=== PATIENT | male | born 1950 | race Caucasian/White ===

== ENCOUNTER 2017-04-04 19:58 | Inpatient (IN) | payer OTHER ==
--- NOTE | 2017-04-04 21:56 | PDOC ---
History of Present Illness <MingoStephanie Maira - Last Filed: 04/04/17 22:39> - History of Present Illness Initial Comments: 04/04/17 22:59 66 y/o M with a PMHx of anemia, HTN, HLD, stents, cirrhosis presents to the ED with orthopnea and back discomfort for a few days, and hemoptysis today. Patient reports associated chills, but denies fever. He got outpatient labs and CXR today which all were normal. Because of the hemoptysis, the patients PCP ordered a chest CT which showed bilateral pneumonia. PCP requests the patient get admitted for IV antibiotics. Denies chest pain, headache. Denies nausea, vomiting, diarrhea. <aKte Cha - Last Filed: 04/04/17 23:39> - General Chief Complaint: Respiratory Stated Complaint: PCP ADMIT Past History - Past Medical History Anemia: Yes Cardiac Disorders: Yes (stents carotid arteries.pacemaker) HTN: Yes Hypercholesterolemia: Yes Liver Disease: Yes (cirrhosis on transplant list) - Surgical History Cardiac Surgery: Yes (3 STENTS, pacemaker) - Psycho/Social/Smoking Cessation Hx Anxiety: No Suicidal Ideation: No Smoking Status: Yes Smoking History: Former smoker Have you smoked in the past 12 months: No Number of Cigarettes Smoked Daily: 0 If you are a former smoker, when did you quit?: 10 years Information on smoking cessation initiated: No Hx Alcohol Use: Yes (Beer, occasionally) Drug/Substance Use Hx: No Substance Use Type: None Hx Substance Use Treatment: No <MingoStephaniederrick Rao - Last Filed: 04/04/17 22:39> <Kate Cha - Last Filed: 04/04/17 23:39> - Past Medical History Allergies/Adverse Reactions: Allergies Allergy/AdvReac Type Severity Reaction Status Date / Time No Known Allergies Allergy Verified 04/04/17 20:07 Home Medications: Ambulatory Orders Aspirin [ASA -] 81 mg PO Q2D 06/04/12 Calcium Acetate 667 mg PO BID 04/04/17 Carvedilol [Coreg -] 6.25 mg PO BID 04/04/17 Cholecalciferol (Vitamin D3) [Vitamin D3] 2,000 unit PO DAILY 04/04/17 Lovastatin 20 mg PO DAILY 04/04/17 Review of Systems - Review of Systems Comments:: 04/04/17 23:00 CONSTITUTIONAL: Absent: fever, chills, diaphoresis, generalized weakness, malaise, loss of appetite HEENT: Absent: rhinorrhea, nasal congestion, throat pain, throat swelling, difficulty swallowing, mouth swelling, ear pain, eye pain, visual changes CARDIOVASCULAR: Absent: chest pain, syncope, palpitations, irregular heart rate , lightheadedness, peripheral edema RESPIRATORY: (+) orthopnea, hemoptysis. Absent: cough, wheezing, stridor GASTROINTESTINAL: Absent: abdominal pain, abdominal distension, nausea, vomiting , diarrhea, constipation, melena, hematochezia GENITOURINARY: Absent: dysuria, frequency, urgency, hesitancy, hematuria, flank pain, genital pain MUSCULOSKELETAL: Absent: myalgia, arthralgia, joint swelling SKIN: Absent: rash, itching, pallor HEMATOLOGIC/IMMUNOLOGIC: Absent: easy bleeding, easy bruising, lymphadenopathy, frequent infections ENDOCRINE: Absent: unexplained weight gain, unexplained weight loss, heat intolerance, cold intolerance NEUROLOGIC: Absent: headache, focal weakness or paresthesias, dizziness, unsteady gait, seizure, mental status changes, bladder or bowel incontinence PSYCHIATRIC: Absent: anxiety, depression, suicidal or homicidal ideation, hallucinations. <Kate Cha - Last Filed: 04/04/17 23:39> *Physical Exam - Vital Signs Last Vital Signs Temp Pulse Resp BP Pulse Ox 97.5 F L 63 18 154/76 94 L 04/04/17 20:04 04/04/17 20:04 04/04/17 20:04 04/04/17 20:04 04/04/17 20:04 <Stephanie Aguila - Last Filed: 04/04/17 22:39> - Vital Signs Last Vital Signs Temp Pulse Resp BP Pulse Ox 97.5 F L 63 18 154/76 94 L 04/04/17 20:04 04/04/17 20:04 04/04/17 20:04 04/04/17 20:04 04/04/17 20:04 - Physical Exam Comments: 04/04/17 23:39 GENERAL: Well developed, well nourished. Awake and alert. No acute distress. HEENT: Normocephalic, atraumatic. PERRLA, EOMI. No conjunctival pallor. Sclera are non-icteric. Moist mucous membranes. Oropharynx is clear. NECK: Supple. Full ROM. No JVD. Carotid pulses 2+ and symmetric, without bruits. No thyromegaly. No lymphadenopathy. CARDIOVASCULAR: Regular rate and rhythm. No murmurs, rubs, or gallops. Distal pulses are 2+ and symmetric. PULMONARY: Defined crackles at lower bases, more right than left. ABDOMINAL: Soft. Non-tender. Non-distended. No rebound or guarding. No organomegaly. Normoactive bowel sounds. MUSCULOSKELETAL: Normal range of motion at all joints. No bony deformities or tenderness. No CVA tenderness. EXTREMITIES: No cyanosis. No clubbing. No edema. No calf tenderness. SKIN: Warm and dry. Normal capillary refill. No rashes. No jaundice. NEUROLOGICAL: Alert, awake, appropriate. Cranial nerves 2-12 intact. No deficits to light touch and temperature in face, upper extremities and lower extremities. No motor deficits in the in face, upper extremities and lower extremities. Normoreflexic in the upper and lower extremities. Normal speech. Toes are downgoing bilaterally. Gait is normal without ataxia. PSYCHIATRIC: Cooperative. Good eye contact. Appropriate mood and affect. <Kate Cha - Last Filed: 04/04/17 23:39> ED Treatment Course - Medications Given in the ED: ED Medications Discontinued Medications Generic Name Dose Route Start Last Admin Trade Name Freq PRN Reason Stop Dose Admin Ceftriaxone Sodium 1 gm/ 50 mls @ 100 mls/hr 04/04/17 22:23 04/04/17 22:59 Dextrose IVPB 04/04/17 22:52 100 mls/hr ONCE ONE Administration <Kate Cha - Last Filed: 04/04/17 23:39> Medical Decision Making - Medical Decision Making 04/04/17 21:56 66-year-old male sent for admission for bilateral infiltrates. Patient had a history of hemoptysis. -Dr Reynoso had CTA chest done and pt found to have infiltrates He had no fever but had c/o chills <Stephanie Aguila - Last Filed: 04/04/17 22:39> *DC/Admit/Observation/Transfer - Discharge Dispostion Admit: Yes <Stephanie Aguila - Last Filed: 04/04/17 22:39> - Attestations Scribe Attestion: 04/04/17 23:00 Documentation prepared by Kate Cha, acting as certified medical biller for Stephanie Aguila MD. <Kate Cha - Last Filed: 04/04/17 23:39> Diagnosis at time of Disposition: Hemoptysis Pneumonia Qualifiers: Pneumonia type: due to unspecified organism Laterality: bilateral Lung location : lower lobe of lung Qualified Code(s): J18.9 - Pneumonia, unspecified organism - Discharge Dispostion Condition at time of disposition: Stable - Referrals
[2017-04-04] MEDS ORDERED: AZITHROMYCIN IVPB 500 MG in DEXTROSE 5%-WATER - 250 ML IVPB ONE (22:23)
[2017-04-04] MEDS ORDERED: CEFTRIAXONE 1 GM in DEXTROSE 5%-WATER - 50 ML IVPB ONE (22:23)
[2017-04-04] MEDS ORDERED: AZITHROMYCIN IVPB 250 ML IVPB ONE (22:42)
[2017-04-04] MEDS ORDERED: CEFTRIAXONE 50 ML ONE (22:42)
[2017-04-04 23:31] LABS: INR 1.2 (0.82-1.09); PROTHROMBIN TIME (PATIENT) 13.2 SEC (9.98-11.88)
[2017-04-05] MEDS ORDERED: ALBUTEROL SO4 2.5/IPRATROPIUM 0.5 INH SOL 3 ML VIAL.NEB. NEB PRN (01:03)
[2017-04-05 03:16] VITALS: BMI 25.4
[2017-04-05 07:30] LABS: BASOPHIL 0.3 % (0-2.0); EOSINOPHIL 1.9 % (0-4.5); MCH 28.5 pg (25.7-33.7); MCHC 33.2 g/dl (32.0-35.9); MEAN CELL VOLUME 85.6 fl (80-96); NEUTROPHILS 55.2 % (42.8-82.8); PLATELET COUNT 77 K/MM3 (134-434); RDW 14.1 % (11.9-15.9); WHITE BLOOD COUNT 3.7 K/mm3 (4.0-10.0)
[2017-04-05 08:12] LABS: ALBUMIN 3.5 g/dl (3.4-5.0); ALK PHOS 62 U/L (45-117); ANION GAP 7 (8-16); BILIRUBIN,TOTAL 0.6 mg/dL (0.2-1.0); CALCIUM 8.8 mg/dL (8.5-10.1); CO2 30 mmol/L (21-32); CREATININE 0.6 mg/dL (0.7-1.3); GLUCOSE,RANDOM 116 mg/dL (74-106); SGOT/AST 20 U/L (15-37); SGPT/ALT 29 U/L (12-78)
--- NOTE | 2017-04-05 08:33 | PN ---
Progress Note (short form) - Note Progress Note: IMP: B/L PNA PPM CAD Hepatoma REC: Follow cultures Abx
--- NOTE | 2017-04-05 09:12 | CONS ---
DATE OF CONSULTATION: 04/05/2017 CONSULTATION REQUESTED BY: Catherine Joshi MD, for shortness of breath. The patient is a 66-year-old male, office patient of [facility] with coronary artery disease status post previous PCI, history of bilateral carotid endarterectomies, pacemaker, hepatoma treated at [facility], who came into the office yesterday with several days of dry cough, blood-tinged sputum, and chills and fever which occurred several days ago. I sent him to [facility] for a chest x-ray and blood work which were basically unremarkable. He then called me back saying he had continued hemoptysis, at which time I arranged for an outpatient CTA to rule out PE and pneumonia. Later in the evening I received a phone call from Dr. Granados reporting that he in fact had bilateral pneumonia, at which time I called the patient for admission. He has been cultured and has been given IV antibiotics. He is currently feeling better. He has had no more hemoptysis. He has been having some difficulty lying flat at night. PAST MEDICAL HISTORY: As outlined above and also includes hyperlipidemia, hypertension. He has chronic thrombocytopenia from chronic liver disease. MEDICATIONS: His home medications include carvedilol 6.25 b.i.d., vitamin D, calcium acetate, lovastatin 20, and aspirin 81 daily. FAMILY HISTORY: Noncontributory. SOCIAL HISTORY: He is a former smoker. PHYSICAL EXAMINATION: General: He appears well. Vital Signs: Temperature 97.7, blood pressure 136/72. O2 saturation was 93 on room air. Heart: S1, S2 regular. Chest: With dense rales at the left base. Abdomen: Soft. Extremities: No edema. EKG showed atrial pacing at 63 beats per minute. Cultures are currently pending. ASSESSMENT: 1. Bilateral pneumonia. 2. History of pacemaker. 3. History of coronary disease. 4. Hepatoma, treated at [facility]. PLAN: 1. Follow cultures. 2. IV antibiotics. 3. Pulmonary evaluation. Will follow. Thank you. RENETTA YEBOAH M.D. [id number]
[2017-04-05] MEDS ORDERED: PATIENT'S OWN MEDICATION (NON-FORMULARY) (Lovastatin [Lovastatin] 20 MG) PO SCH (10:00)
[2017-04-05] MEDS ORDERED: cefTRIAXone SODIUM 1 GM VIAL ONE (10:26)
[2017-04-05] MEDS ORDERED: DEXTROSE 5%-WATER - 50 ML IVPB ONE (10:27)
[2017-04-05] MEDS: AZITHROMYCIN IVPB 250 ML IVPB SCH (10:34)
[2017-04-05] MEDS: CEFTRIAXONE 1 GM in DEXTROSE 5%-WATER - 50 ML IVPB SCH (10:34)
[2017-04-05] MEDS: CALCIUM ACETATE 667 MG CAPSULE (FP) PO SCH ×2 (10:35→21:35)
[2017-04-05] MEDS: HEPARIN NA (PORCINE) 5,000 UNITS/ML 1ML VIAL SQ SCH ×2 (10:35→21:36)
[2017-04-05] MEDS: ASPIRIN 81 MG CHEWABLE TABLETS PO SCH (10:35)
[2017-04-05] MEDS: CARVEDILOL 6.25 MG TABLET (FP) PO SCH ×2 (10:35→21:35)
--- NOTE | 2017-04-05 14:50 | CON.PULM ---
Consult Consult Specialty:: PULMONARY Referred by:: PANCHO Reason for Consultation:: PNEUMONIA - History of Present Illness Chief Complaint: SOB/COUGH/HEMOPTYSIS History of Present Illness: 66 y/o M with a PMHx of anemia, HTN, HLD, stents, cirrhosis presents to the ED with orthopnea and back discomfort for a few days, and hemoptysis on day of admission. Patient reports associated chills, but denies fever. He got outpatient labs and CXR yesterday which all were normal. Because of the hemoptysis, the patients PCP ordered a chest CT which showed bilateral pneumonia. PCP requests the patient get admitted for IV antibiotics. Denies chest pain, headache. Denies nausea, vomiting, diarrhea. 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: Alzheimer's Cardio/Vascular: No: AFIB Pulmonary: No: Asthma, COPD, O2 Dependent Gastrointestinal: No: Ascites Hepatobiliary: No: Cirrhosis Renal/: No: Renal Failure Heme/Onc: No: Anemia Infectious Disease: No: AIDS Psych: No: Addictions - Alcohol/Substance Use Hx Alcohol Use: No - Smoking History Smoking history: Former smoker Have you smoked in the past 12 months: No Aproximately how many cigarettes per day: 0 If you are a former smoker, when did you quit?: 10 years Home Medications - Allergies Allergies/Adverse Reactions: Allergies Allergy/AdvReac Type Severity Reaction Status Date / Time No Known Allergies Allergy Verified 04/04/17 20:07 - Home Medications Home Medications: Ambulatory Orders Aspirin [ASA -] 81 mg PO Q2D 06/04/12 Calcium Acetate 667 mg PO BID 04/04/17 Carvedilol [Coreg -] 6.25 mg PO BID 04/04/17 Cholecalciferol (Vitamin D3) [Vitamin D3] 2,000 unit PO DAILY 04/04/17 Lovastatin 20 mg PO DAILY 04/04/17 Family Disease History - Family Disease History Family History: Unremarkable Review of Systems - Review of Systems Constitutional: reports: Fever Eyes: denies: Blurred Vision HENT: denies: Difficult Swallowing Neck: denies: Decreased ROM Cardiovascular: reports: Shortness of Breath. denies: Chest Pain Respiratory: reports: Cough, Hemoptysis, SOB on Exertion Gastrointestinal: denies: Abdominal Pain Genitourinary: denies: Burning Breasts: reports: No Symptoms Reported Physical Exam Vital Sings: Vital Signs Temperature 97.7 F 04/05/17 13:48 Pulse Rate 70 04/05/17 13:48 Respiratory Rate 20 04/05/17 13:48 Blood Pressure 116/75 04/05/17 13:48 O2 Sat by Pulse Oximetry (%) 93 L 04/05/17 03:10 Constitutional: Yes: Calm Eyes: Yes: EOM Intact HENT: Yes: Normocephalic Neck: Yes: Trachea Midline Cardiovascular: Yes: Regular Rate and Rhythm Respiratory: Yes: Rhonchi (bibasilar) Gastrointestinal: Yes: Soft Edema: No Labs: CBC, BMP 04/05/17 06:00 04/05/17 06:00 Imaging - Results Chest X-ray: Image Reviewed Cat Scan: Image Reviewed Problem List - Problems (1) Hemoptysis Code(s): R04.2 - HEMOPTYSIS (2) Pneumonia Code(s): J18.9 - PNEUMONIA, UNSPECIFIED ORGANISM Qualifiers: Pneumonia type: due to unspecified organism Laterality: bilateral Lung location: lower lobe of lung Qualified Code(s): J18.9 - Pneumonia, unspecified organism (3) ASHD (arteriosclerotic heart disease) Code(s): I25.10 - ATHSCL HEART DISEASE OF [place] CORONARY ARTERY W/O ANG PCTRS Assessment/Plan panculture/antibiotics/o2/bronchodilators as needed continue home meds will follow Marissa MACK MD
--- NOTE | 2017-04-05 18:17 | HP ---
Admitting History and Physical - Admission History of Present Illness: Pt is a 66 y/o male w/ PMH significant for HT, HLD, PPM, anemia and hepatoma. Pt saw his caddie today w/ complaints of orthopnea for a few days w/ dry nonproductive cough. Pt denies any fever/chills however pt developed hemoptysis and was sent for a ct scan chest and was found to have b/l oneumonia and sent to the ER. In the ER pt found to be afebrile w/ a normal WBC - Past Medical History Cardiovascular: Yes: HTN, Hyperlipdemia Heme/Onc: Yes: Anemia - Past Surgical History Past Surgical History: Yes: Permanent Pacemaker - Smoking History Smoking history: Former smoker Have you smoked in the past 12 months: No Aproximately how many cigarettes per day: 0 If you are a former smoker, when did you quit?: 10 years - Alcohol/Substance Use Hx Alcohol Use: No Home Medications - Allergies Allergies/Adverse Reactions: Allergies Allergy/AdvReac Type Severity Reaction Status Date / Time No Known Allergies Allergy Verified 04/04/17 20:07 - Home Medications Home Medications: Ambulatory Orders Aspirin [ASA -] 81 mg PO Q2D 06/04/12 Calcium Acetate 667 mg PO BID 04/04/17 Carvedilol [Coreg -] 6.25 mg PO BID 04/04/17 Cholecalciferol (Vitamin D3) [Vitamin D3] 2,000 unit PO DAILY 04/04/17 Lovastatin 20 mg PO DAILY 04/04/17 Family Disease History - Family Disease History Family History: Unremarkable Review of Systems - Review of Systems Constitutional: reports: Malaise Eyes: reports: No Symptoms HENT: reports: No Symptoms Neck: reports: No Symptoms Cardiovascular: reports: Shortness of Breath Respiratory: reports: Cough, Orthopnea, SOB Gastrointestinal: reports: No Symptoms Physical Examination Vital Signs: Vital Signs Temperature 97.7 F 04/05/17 13:48 Pulse Rate 70 04/05/17 13:48 Respiratory Rate 20 04/05/17 13:48 Blood Pressure 116/75 04/05/17 13:48 O2 Sat by Pulse Oximetry (%) 93 L 04/05/17 09:00 Constitutional: Yes: Calm Neck: Yes: WNL, Supple Cardiovascular: Yes: WNL, Regular Rate and Rhythm Respiratory: Yes: Rhonchi Gastrointestinal: Yes: WNL, Normal Bowel Sounds, Soft Musculoskeletal: Yes: WNL Extremities: Yes: WNL Edema: No Labs: CBC, BMP 04/05/17 06:00 04/05/17 06:00 Problem List - Problems (1) Pneumonia Assessment/Plan: B/L pneumonia Cont IV ceftriaxone/zithro Cont duoneb Pulmonary consult Code(s): J18.9 - PNEUMONIA, UNSPECIFIED ORGANISM Qualifiers: Pneumonia type: due to unspecified organism Laterality: bilateral Lung location: lower lobe of lung Qualified Code(s): J18.9 - Pneumonia, unspecified organism (2) HTN (hypertension) Assessment/Plan: Cont coreg/asa Code(s): I10 - ESSENTIAL (PRIMARY) HYPERTENSION (3) Hemoptysis Code(s): R04.2 - HEMOPTYSIS (4) Chronic respiratory failure Code(s): J96.10 - CHRONIC RESPIRATORY FAILURE, UNSP W HYPOXIA OR HYPERCAPNIA (5) ASHD (arteriosclerotic heart disease) Assessment/Plan: Cont asa/lipitor Code(s): I25.10 - ATHSCL HEART DISEASE OF [place] CORONARY ARTERY W/O ANG PCTRS (6) HLD (hyperlipidemia) Assessment/Plan: Cont lipitor Code(s): E78.5 - HYPERLIPIDEMIA, UNSPECIFIED
--- NOTE | 2017-04-05 18:42 | EKG ---
Test Reason : Blood Pressure : / mmHG Vent. Rate : 063 BPM Atrial Rate : 063 BPM P-R Int : 000 ms QRS Dur : 094 ms QT Int : 398 ms P-R-T Axes : -15 030 020 degrees QTc Int : 407 ms Atrial-paced rhythm with prolonged AV conduction ABNORMAL ECG WHEN COMPARED WITH ECG OF 05-JUN-2012 09:09, ELECTRONIC ATRIAL PACEMAKER HAS REPLACED SINUS RHYTHM Confirmed by JESSEE WARE MD ([id number]) on 04/05/2017 6:42:21 PM Referred By: Confirmed By:JESSEE WARE MD
--- NOTE | 2017-04-06 08:33 | PN ---
Progress Note (short form) - Note Progress Note: Afebrile with normal BP, not tachycardic and requiring O2 Comfortable with cough subsiding. No further blood tinged sputum. S1-2 Regular. Chest still w/ rales left base but improved He has no edema. Blood cultures remain negative. IMP: Bilobar PNA CAD PPM Hepatoma under treatment ([place]) REC: If cultures remain negative, can be discharged probably tomorrow with PO abx. Will need interval f/u CT as recommended by radiology.
[2017-04-06] MEDS ORDERED: cefTRIAXone SODIUM 1 GM VIAL ONE (09:15)
[2017-04-06] MEDS ORDERED: DEXTROSE 5%-WATER - 50 ML IVPB ONE (09:15)
[2017-04-06] MEDS: CALCIUM ACETATE 667 MG CAPSULE (FP) PO SCH ×2 (09:17→22:06)
[2017-04-06] MEDS: CARVEDILOL 6.25 MG TABLET (FP) PO SCH ×2 (09:17→22:06)
[2017-04-06] MEDS: CEFTRIAXONE 1 GM in DEXTROSE 5%-WATER - 50 ML IVPB SCH (09:18)
[2017-04-06] MEDS: HEPARIN NA (PORCINE) 5,000 UNITS/ML 1ML VIAL SQ SCH ×2 (09:18→22:06)
[2017-04-06] MEDS: AZITHROMYCIN IVPB 250 ML IVPB SCH (09:54)
--- NOTE | 2017-04-06 10:47 | PN ---
Progress Note (short form) - Note Progress Note: PULMONARY DAY#3 IV ANTIBIOTICS SUBJECTIVE IMPROVEMENT/MUCOUS WITH MINOR BLOOD STREAKING VSS/AFEBRILE ANICTERIC DIMINISHED BREATH SOUNDS S1S2 BS+ NO EDEMA LABS/MEDS/IMAGING/MICRO REVIEWED (1) Hemoptysis Code(s): R04.2 - HEMOPTYSIS (2) Pneumonia Code(s): J18.9 - PNEUMONIA, UNSPECIFIED ORGANISM Qualifiers: Pneumonia type: due to unspecified organism Laterality: bilateral Lung location: lower lobe of lung Qualified Code(s): J18.9 - Pneumonia, unspecified organism (3) ASHD (arteriosclerotic heart disease) Code(s): I25.10 - ATHSCL HEART DISEASE OF [place] CORONARY ARTERY W/O ANG PCTRS Assessment/Plan antibiotics/o2/bronchodilators/chest PT continue home meds should be ready for discharge in AM R FREDERICK BUTCHER Problem List - Problems (1) Hemoptysis Code(s): R04.2 - HEMOPTYSIS (2) Pneumonia Code(s): J18.9 - PNEUMONIA, UNSPECIFIED ORGANISM Qualifiers: Pneumonia type: due to unspecified organism Laterality: bilateral Lung location: lower lobe of lung Qualified Code(s): J18.9 - Pneumonia, unspecified organism (3) ASHD (arteriosclerotic heart disease) Code(s): I25.10 - ATHSCL HEART DISEASE OF [place] CORONARY ARTERY W/O ANG PCTRS
[2017-04-06] MEDS: ALBUTEROL SO4 2.5/IPRATROPIUM 0.5 INH SOL 3 ML VIAL.NEB. NEB SCH ×3 (11:31→23:20)
--- NOTE | 2017-04-06 23:46 | PN ---
Progress Note, Physician History of Present Illness: Pt still w/ cough but less SOB - Current Medication List Current Medications: Active Medications Albuterol/Ipratropium (Duoneb -) 1 amp NEB QIDR [facility] Last Admin: 04/06/17 17:30 Dose: 1 amp Aspirin (Asa -) 81 mg PO Q2D [facility] Last Admin: 04/05/17 10:35 Dose: 81 mg Calcium Acetate (Phoslo -) 667 mg PO BID [facility] Last Admin: 04/06/17 22:06 Dose: 667 mg Carvedilol (Coreg -) 6.25 mg PO BID [facility] Last Admin: 04/06/17 22:06 Dose: 6.25 mg Heparin Sodium (Porcine) (Heparin -) 5,000 unit SQ BID [facility] Last Admin: 04/06/17 22:06 Dose: 5,000 unit Azithromycin (Zithromax 500mg Ivpb (Pre-Docked)) 250 mls @ 250 mls/hr IVPB DAILY [facility] Last Admin: 04/06/17 09:54 Dose: 250 mls/hr Ceftriaxone Sodium 1 gm/ (Dextrose) 50 mls @ 100 mls/hr IVPB DAILY [facility] Last Admin: 04/06/17 09:18 Dose: 100 mls/hr Non-Formulary Medication (Lovastatin [Lovastatin]) 20 mg PO DAILY [facility] - Objective Vital Signs: Vital Signs Temperature 98.0 F 04/06/17 18:26 Pulse Rate 66 04/06/17 18:26 Respiratory Rate 18 04/06/17 18:26 Blood Pressure 132/71 04/06/17 18:26 O2 Sat by Pulse Oximetry (%) 94 L 04/06/17 09:00 Constitutional: Yes: Calm HENT: Yes: WNL Neck: Yes: WNL, Supple Cardiovascular: Yes: WNL, Regular Rate and Rhythm Respiratory: Yes: Diminished Gastrointestinal: Yes: WNL, Normal Bowel Sounds, Soft Musculoskeletal: Yes: WNL Extremities: Yes: WNL Edema: No Labs: CBC, BMP 04/05/17 06:00 04/05/17 06:00 INR, PTT INR 1.20 (0.82-1.09) H 04/04/17 22:45 Problem List - Problems (1) Pneumonia Assessment/Plan: B/L pneumonia Cont IV ceftriaxone/zithro Cont duoneb Some improvement Probable dc planning for am Code(s): Rhiannon18.9 - PNEUMONIA, UNSPECIFIED ORGANISM Qualifiers: Pneumonia type: due to unspecified organism Laterality: bilateral Lung location: lower lobe of lung Qualified Code(s): J18.9 - Pneumonia, unspecified organism (2) Chronic respiratory failure Code(s): J96.10 - CHRONIC RESPIRATORY FAILURE, UNSP W HYPOXIA OR HYPERCAPNIA (3) ASHD (arteriosclerotic heart disease) Assessment/Plan: Cont asa/lipitor Code(s): I25.10 - ATHSCL HEART DISEASE OF [place] CORONARY ARTERY W/O ANG PCTRS (4) HLD (hyperlipidemia) Assessment/Plan: Cont lipitor Code(s): E78.5 - HYPERLIPIDEMIA, UNSPECIFIED (5) HTN (hypertension) Assessment/Plan: Cont coreg/asa Code(s): I10 - ESSENTIAL (PRIMARY) HYPERTENSION (6) Hemoptysis Assessment/Plan: Resolved Code(s): R04.2 - HEMOPTYSIS (7) Hepatoma Assessment/Plan: As per [facility]co at [facility] Code(s): C22.0 - LIVER CELL CARCINOMA
[2017-04-07] MEDS: ALBUTEROL SO4 2.5/IPRATROPIUM 0.5 INH SOL 3 ML VIAL.NEB. NEB SCH ×2 (07:14→11:44)
[2017-04-07 07:18] LABS: BASOPHIL 0.4 % (0-2.0); EOSINOPHIL 2.8 % (0-4.5); MCH 28.5 pg (25.7-33.7); MCHC 33.2 g/dl (32.0-35.9); MEAN CELL VOLUME 85.8 fl (80-96); NEUTROPHILS 59.2 % (42.8-82.8); PLATELET COUNT 79 K/MM3 (134-434); RDW 14.4 % (11.9-15.9); WHITE BLOOD COUNT 3.7 K/mm3 (4.0-10.0)
--- NOTE | 2017-04-07 08:45 | PN ---
Progress Note (short form) - Note Progress Note: Afebrile, cultures remain negative feels well, blood tinged sputum resolved BP: 150/80 CV: S1, 2. RRR. No murmurs Chest: no wheezing. Rales left base improved. Abd: soft, NT Ext: no edema Microbiology 04/04/17 22:45 Blood - Peripheral Venous Blood Culture - Preliminary NO GROWTH OBTAINED AFTER 48 HOURS, INCUBATION TO CONTINUE FOR 3 DAYS. 04/04/17 22:45 Blood - Peripheral Venous Blood Culture - Preliminary NO GROWTH OBTAINED AFTER 48 HOURS, INCUBATION TO CONTINUE FOR 3 DAYS. Laboratory Tests 04/05/17 04/06/17 04/07/17 06:00 10:45 06:00 WBC 3.7 L Hct 38.8 Plt Count 79 L Potassium 4.1 Creatinine 0.6 L C-Reactive Protein 1.2 H IMP: B/l PNA Hepatoma CAD PPM REC: Remains stable with improved cough, not requiring O2. Cultures negative x 72 hours. Can be discharged on PO abx with close outpatient follow up.
[2017-04-07] MEDS ORDERED: DEXTROSE 5%-WATER - 50 ML IVPB ONE (09:08)
[2017-04-07] MEDS ORDERED: cefTRIAXone SODIUM 1 GM VIAL ONE (09:08)
[2017-04-07] MEDS: CEFTRIAXONE 1 GM in DEXTROSE 5%-WATER - 50 ML IVPB SCH (09:15)
[2017-04-07] MEDS: HEPARIN NA (PORCINE) 5,000 UNITS/ML 1ML VIAL SQ SCH (09:15)
[2017-04-07] MEDS: CALCIUM ACETATE 667 MG CAPSULE (FP) PO SCH (09:16)
[2017-04-07] MEDS: CARVEDILOL 6.25 MG TABLET (FP) PO SCH (09:16)
[2017-04-07] MEDS: ASPIRIN 81 MG CHEWABLE TABLETS PO SCH (09:16)
[2017-04-07] MEDS: AZITHROMYCIN IVPB 250 ML IVPB SCH (09:54)
[2017-04-07 14:07] VITALS: BP 117/74; PULSE 64; TEMP 97.6
== END 2017-04-07 16:34 | disposition home or self-care (01) | DRG 194 ==
LOC: JER 19:58 → JERBED 22:29 → UNDOADMIN 23:02 → JERBED 23:02 → J7W 04-05 00:51
PROVIDERS: ADMIT Internal Medicine; ATTEND Internal Medicine
DX: J18.9 Pneumonia, unspecified organism (principal); C22.0 Liver cell carcinoma; I10 Essential (primary) hypertension; E78.5 Hyperlipidemia, unspecified; K74.60 Unspecified cirrhosis of liver; Z95.5 Presence of coronary angioplasty implant and graft; I25.10 Atherosclerotic heart disease of native coronary artery without angina pectoris; Z95.0 Presence of cardiac pacemaker; Z87.891 Personal history of nicotine dependence
CPT/HCPCS: 36415; 71020-TC; 71275-TC; 80048; 80053; 80076; 83880; 85025; 85610; 86140; 87040; 93005; 93010; 94640; 99282-25; C1887; J1644

== ENCOUNTER 2019-08-02 13:52 | Inpatient (IN) | payer OTHER ==
--- NOTE | 2019-08-02 15:36 | PDOC ---
History of Present Illness - General Chief Complaint: Edema Stated Complaint: RT. LEG EDEMA - History of Present Illness Initial Comments: 68M PMH DM, HTN, CHF s/p AICD/PPM on home O2 (2.5L), AF w/ watchmen, Liver transplant (2016 on tacrolimus), sent in by PCP Dr. Harshil Garcia due to b /l LE pitting edema w/ R > L and generalized fatigue. Not normally edematous. Sx appeared days ago. Fatigue x 1 week. Has 6 mo h/o sob and orthopnea, has not worsened. Denies f/c/cp/n/v/d. NKDA Former smoker Past History - Past Medical History Allergies/Adverse Reactions: Allergies Allergy/AdvReac Type Severity Reaction Status Date / Time No Known Allergies Allergy Verified 08/02/19 14:01 Home Medications: Ambulatory Orders Aspirin [ASA -] 81 mg PO DAILY 06/04/12 Cholecalciferol (Vitamin D3) [Vitamin D3] 2,000 unit PO DAILY 04/04/17 Atorvastatin Ca [Lipitor] 20 mg PO HS 08/02/19 Carvedilol 12.5 mg PO BID 08/02/19 Cyanocobalamin [Vitamin B12 -] 1,000 mcg PO DAILY 08/02/19 Furosemide 40 mg PO DAILY 08/02/19 Insulin (Levemir) [Levemir Vial] 8 unit SQ HS 08/02/19 Insulin Lispro [Humalog] 5 unit SQ AC 08/02/19 Magnesium Oxide [Magnesium] 0.5 tab PO QID 08/02/19 Multivit-Min/Ferrous Fumarate [Uhjivlgx-M-U with Minerals] 1 each PO DAILY 08/02 Tacrolimus Anhydrous [Prograf] 1 mg PO BID 08/02/19 Ubidecarenone [Co Q-10] 1 tab DAILY 08/02/19 Vitamin E 100 unit PO DAILY 08/02/19 traZODone HCL [Trazodone HCl] 50 mg PO HS 08/02/19 Anemia: Yes Cardiac Disorders: Yes (stents carotid arteries.pacemaker) COPD: No HTN: Yes Hypercholesterolemia: Yes Liver Disease: Yes (cirrhosis on transplant list) - Surgical History Cardiac Surgery: Yes (3 STENTS, pacemaker) - Psycho Social/Smoking Cessation Hx Smoking Status: Yes Smoking History: Former smoker Have you smoked in the past 12 months: No Number of Cigarettes Smoked Daily: 0 If you are a former smoker, when did you quit?: 10 years Information on smoking cessation initiated: No Hx Alcohol Use: No Drug/Substance Use Hx: No Substance Use Type: None Hx Substance Use Treatment: No Review of Systems - Review of Systems Able to Perform ROS?: Yes Comments:: CONSTITUTIONAL: Denies F / C HEENT: Denies headache, lightheadedness, dizziness RESP: endorses chronic CRAMER, orthopnea CARD: Denies chest pain, palpitations GI: Denies N / V / D, abdominal pain, bloody stool, inability to tolerate PO : Denies dysuria SKIN: Denies rashes NEURO: Denies numbness, tingling, weakness MSK: Denies back pain *Physical Exam - Vital Signs Last Vital Signs Temp Pulse Resp BP Pulse Ox 98.7 F 82 18 128/74 90 L 08/02/19 13:57 08/02/19 13:57 08/02/19 13:57 08/02/19 13:57 08/02/19 13:57 - Physical Exam GEN: NAD, comfortable. AAOx3 HEENT: NC/AT, EOMI, PERRLA. No facial asymmetry. Normal voice. Supple neck w/ FROM. CV: S1/S2, RRR, no m/r/g LUNG: SaO2 mid 80s on RA. CTAB no crackles appreciated GI: soft, ndnt, +BS, no guarding, no rebound. No masses. EXTREMITIES: +distal pulses. + pitting LE edema b/l; R>L. +warmth and erythema of the RLE. No calf TTP. No obvious deformities of all extremities. SKIN: warm, dry, normal turgor PSYCH: normal mood and affect NEURO: Moving all extremities well. Ambulating w/ normal gait ED Treatment Course - LABORATORY CBC & Chemistry Diagram: 08/03/19 06:35 08/04/19 06:15 Medical Decision Making - Medical Decision Making 08/02/19 15:28 68M DM, HTN, CHF s/p AICD/PPM, Liver transplant 2017 on tacrolimus sent in by PCP Dr. Harshil Garcia for evaluation of LE pitting edema, generalized fatigue. Has chronic sob/orthopnea. +redness and warmth of the RLE; b/l pitting edema R > L. Received 40mg Lasix at PCPs. DDx - CHF exacerbation; DVT; cellulitis - CBC, CMP, BNP, Cardiac - CXR - EKG - RLE Duplex - empiric vanc 08/02/19 17:02 d/w Dr. Harshil Garcia - he is concerned about PE and requesting CTA. h/o AF w/ watchman device 2/2 GIB on AC. requesting fobt and to possibly start LVX 08/02/19 19:39 f/u imaging results FOBT 08/02/19 20:03 No DVT on Doppler 08/02/19 20:09 d/w Dr. Aj - will see in AM ADMITTED TELE under Dr. Joshi Discharge - Discharge Information Problems reviewed: Yes Clinical Impression/Diagnosis: CHF (congestive heart failure) Qualifiers: Heart failure type: unspecified Heart failure chronicity: unspecified Qualified Code(s): I50.9 - Heart failure, unspecified - Follow up/Referral - Patient Discharge Instructions - Post Discharge Activity
[2019-08-02 16:16] LABS: BASO % 0.4 % (0-2.0); EOS % 1.9 % (0-4.5); HEMATOCRIT 49.7 % (35.4-49); HEMOGLOBIN 15.9 GM/dL (11.7-16.9); LYMPH % 17.8 % (8-40); MCH 30.1 pg (25.7-33.7); MEAN CELL VOLUME 94.3 fl (80-96); MEAN PLT VOLUME 8.4 fl (7.5-11.1); NEUT % 67.9 % (42.8-82.8); PLATELET COUNT 164 K/MM3 (134-434); RBC 5.27 M/mm3 (4.00-5.60); RDW 17.5 % (11.9-15.9); WHITE BLOOD COUNT 7.4 K/mm3 (4.0-10.0)
[2019-08-02] MEDS ORDERED: VANCOMYCIN 1 GM in D5W (PRE-DOCKED) 1,000 MG/250 ML IVPB ONE (16:21)
[2019-08-02] MEDS ORDERED: VANCOMYCIN 1 GRAM (PRE-DOCKED) 1,000 MG/250 ML BAG IVPB ONE (16:39)
[2019-08-02 16:52] LABS: ALBUMIN 4.4 g/dl (3.4-5.0); BILIRUBIN,TOTAL 1.6 mg/dL (0.2-1); BLOOD UREA NITROGEN 26.6 mg/dL (7-18); CALCIUM 9.9 mg/dL (8.5-10.1); CREATININE 1.2 mg/dL (0.55-1.3); N-TERMINAL BNP 886.8 pg/ml (5-125); POTASSIUM 5.1 mmol/L (3.5-5.1); TOT PROT 7.9 g/dl (6.4-8.2)
[2019-08-03] MEDS ORDERED: PATIENT'S OWN MEDICATION (NON-FORMULARY) (Insulin Lispro [Humalog] 5 UNIT) SQ SCH (00:15)
[2019-08-03 01:55] VITALS: BMI 26.8
[2019-08-03] MEDS ORDERED: ceFAZolin SODIUM 1 GM VIAL ONE ×3 (02:14→17:09)
[2019-08-03] MEDS ORDERED: DEXTROSE 5%-WATER - 50 ML IVPB ONE ×3 (02:14→17:09)
[2019-08-03] MEDS: CEFAZOLIN 1 GM in DEXTROSE 5%-WATER - 50 ML IVPB SCH ×4 (02:19→17:21)
[2019-08-03] MEDS: traZODone HCL 50 MG TABLET (FP) PO SCH ×2 (04:39→21:27)
[2019-08-03] MEDS: INSULIN SLIDING SCALE (NOVOLOG) 1 VIAL SQ SCH ×3 (06:17→21:25)
[2019-08-03 07:04] LABS: BASO % 0.4 % (0-2.0); EOS % 1.9 % (0-4.5); HEMATOCRIT 44.1 % (35.4-49); HEMOGLOBIN 14.3 GM/dL (11.7-16.9); MCH 30.2 pg (25.7-33.7); MCHC 32.5 g/dl (32.0-35.9); MEAN CELL VOLUME 92.9 fl (80-96); MEAN PLT VOLUME 8.1 fl (7.5-11.1); MONO % 13.6 % (3.8-10.2); NEUT % 69.1 % (42.8-82.8); PLATELET COUNT 129 K/MM3 (134-434); RBC 4.74 M/mm3 (4.00-5.60); WHITE BLOOD COUNT 5.6 K/mm3 (4.0-10.0)
[2019-08-03 07:49] LABS: ALBUMIN 3.7 g/dl (3.4-5.0); BILIRUBIN,TOTAL 1.4 mg/dL (0.2-1); BLOOD UREA NITROGEN 21.8 mg/dL (7-18); CALCIUM 8.6 mg/dL (8.5-10.1); CREATININE 1.1 mg/dL (0.55-1.3); POTASSIUM 4.3 mmol/L (3.5-5.1); TOT PROT 6.7 g/dl (6.4-8.2)
[2019-08-03] MEDS ORDERED: PT OWN MED DRAWER 7, Y5N ONE ×3 (08:03→20:52)
--- NOTE | 2019-08-03 08:03 | CON.CARD ---
Consult Consult Specialty:: cardiology Reason for Consultation:: shortness of breath - History of Present Illness Chief Complaint: Pt A&Ox3; no chesta pain or dyspnea; c/o bilateral LE swelling , though improving History of Present Illness: The patient is a 68 year old white male, with a significant past medical history of anemia, HTN, HLD, diastolic CHF s/p DDDR PPM, AF s/p Watchman (?no longer on anticoagulation), CAD-->coronary stents, COPD, on home O2, DM, cirrhosis, s/p liver transplant ([facility]2016; on Tarcrolimus), who presents to the emergency department with, worsening bilateral lower extremity edema, dyspnea, fatigue, and orthopnea x one week.. As per patient, he ate canned soup just prior to the onset of his symptoms; denies nausea, vomiting, diarrhea, constipation, dysuria, frequency, urgency, or hematuria. He notes visiting his PCP, Dr. Garcia who gave him IV Lasix and advised him to report to the ED. Allergies: NKDA Not normally edematous. Sx appeared days ago. Has 6 mo h/o sob and orthopnea, has not worsened. Former smoker (quit 2006) - History Source History Provided By: Patient, Medical Record Limitations to Obtaining History: No Limitations - Past Medical History Cardio/Vascular: Yes: Aortic Stenosis (moderate on most recent ECHO), CAD, CHF, HTN, Hyperlipdemia Pulmonary: Yes: COPD. No: Asthma Hepatobiliary: Yes: Cirrhosis, Other (s/p liver transplant) Renal/: No: Renal Inusuff Heme/Onc: No: Anemia - Past Surgical History Past Surgical History: Yes: Liver Transplant, Permanent Pacemaker - Alcohol/Substance Use Hx Alcohol Use: No - Smoking History Smoking history: Former smoker Have you smoked in the past 12 months: No Aproximately how many cigarettes per day: 0 If you are a former smoker, when did you quit?: 12 YEARS AGO Home Medications - Allergies Allergies/Adverse Reactions: Allergies Allergy/AdvReac Type Severity Reaction Status Date / Time No Known Allergies Allergy Verified 08/02/19 14:01 - Home Medications Home Medications: Ambulatory Orders Aspirin [ASA -] 81 mg PO DAILY 06/04/12 Cholecalciferol (Vitamin D3) [Vitamin D3] 2,000 unit PO DAILY 04/04/17 Atorvastatin Ca [Lipitor] 20 mg PO HS 08/02/19 Carvedilol 12.5 mg PO BID 08/02/19 Cyanocobalamin [Vitamin B12 -] 1,000 mcg PO DAILY 08/02/19 Furosemide 40 mg PO DAILY 08/02/19 Insulin (Levemir) [Levemir Vial] 8 unit SQ HS 08/02/19 Insulin Lispro [Humalog] 5 unit SQ AC 08/02/19 Magnesium Oxide [Magnesium] 0.5 tab PO QID 08/02/19 Multivit-Min/Ferrous Fumarate [Elawvazz-M-X with Minerals] 1 each PO DAILY 08/02 Tacrolimus Anhydrous [Prograf] 1 mg PO BID 08/02/19 Ubidecarenone [Co Q-10] 1 tab DAILY 08/02/19 Vitamin E 100 unit PO DAILY 08/02/19 traZODone HCL [Trazodone HCl] 50 mg PO HS 08/02/19 Family Medical History Family History: Denies Review of Systems - Review of Systems Constitutional: reports: Weakness - Risk Factors Known Risk Factors: Yes: Age, Gender, Hypertension, Physical Inactivity, Other ( liver cirrhosis-->transplant; COPD;) Vital Signs: Vital Signs Temperature 97.8 F 08/03/19 06:00 Pulse Rate 59 L 08/03/19 06:00 Respiratory Rate 20 08/03/19 06:00 Blood Pressure 114/66 08/03/19 06:00 O2 Sat by Pulse Oximetry (%) 95 08/03/19 01:30 - Other Data Labs, Other Data: CBC, BMP 08/03/19 06:35 08/03/19 06:35 Troponin, BNP 08/02/19 08/02/19 08/03/19 15:30 15:30 02:00 Troponin I < 0.02 < 0.02 B-Natriuretic Peptide 886.8 H Troponin, BNP 08/02/19 08/02/19 08/03/19 15:30 15:30 02:00 Troponin I < 0.02 < 0.02 B-Natriuretic Peptide 886.8 H Problem List - Problems (1) Liver cirrhosis Code(s): K74.60 - UNSPECIFIED CIRRHOSIS OF LIVER (2) S/P liver transplant Code(s): Z94.4 - LIVER TRANSPLANT STATUS (3) H/O heart artery stent Assessment/Plan: ? most recently 2006 F/u prior cardiac workup Code(s): Z95.5 - PRESENCE OF CORONARY ANGIOPLASTY IMPLANT AND GRAFT (4) ASHD (arteriosclerotic heart disease) Code(s): I25.10 - ATHSCL HEART DISEASE OF [place] CORONARY ARTERY W/O ANG PCTRS (5) HLD (hyperlipidemia) Assessment/Plan: On atorvastatin LDL well-controlled Code(s): E78.5 - HYPERLIPIDEMIA, UNSPECIFIED (6) HTN (hypertension) Assessment/Plan: On carvedilol On furosemide (caution with ; f/u ECHO. Start lisinopril (HTN; CHF; DM). Code(s): I10 - ESSENTIAL (PRIMARY) HYPERTENSION (7) Aortic stenosis Assessment/Plan: moderate on 2011 ECHO; f/u ECHO in am. Code(s): I35.0 - NONRHEUMATIC AORTIC (VALVE) STENOSIS (8) Pacemaker Code(s): Z95.0 - PRESENCE OF CARDIAC PACEMAKER (9) CHF (congestive heart failure) Assessment/Plan: elevated BNP CXR: pleural effusion f/u ECHO F/u BUn/Cr, eelectrolytes, daily weight, Is and Os. Code(s): I50.9 - HEART FAILURE, UNSPECIFIED Qualifiers: Heart failure type: unspecified Heart failure chronicity: unspecified Qualified Code(s): I50.9 - Heart failure, unspecified (10) Diabetes Code(s): E11.9 - TYPE 2 DIABETES MELLITUS WITHOUT COMPLICATIONS (11) COPD (chronic obstructive pulmonary disease) Code(s): J44.9 - CHRONIC OBSTRUCTIVE PULMONARY DISEASE, UNSPECIFIED (12) Acute on chronic diastolic CHF (congestive heart failure) Assessment/Plan: +JVP CXR: right pleural effusion BNP >800 On carvedilol, lisinopril, and furosemide. Daily weight; Is and Os; BUN/Cr; electrolytes. ECHO for LVEF, valve status, chamber sizes. For CTA chest. Code(s): I50.33 - ACUTE ON CHRONIC DIASTOLIC (CONGESTIVE) HEART FAILURE
[2019-08-03] MEDS: ASPIRIN 81 MG CHEWABLE TABLETS PO SCH (09:36)
[2019-08-03] MEDS: FUROSEMIDE 40 MG/4 ML INJECTABLE VIAL IVPUSH SCH (09:36)
[2019-08-03] MEDS: HEPARIN NA (PORCINE) 5,000 UNITS/ML 1ML VIAL SQ SCH ×2 (09:36→21:27)
[2019-08-03] MEDS: CARVEDILOL 12.5 MG TABLET (FP) PO SCH ×2 (09:36→21:27)
[2019-08-03] MEDS: LISINOPRIL 5 MG TABLET (FP) PO SCH (09:38)
[2019-08-03] MEDS: TACROLIMUS ANHYDROUS 1 MG CAPSULE PO SCH ×2 (10:30→21:27)
--- NOTE | 2019-08-03 13:06 | ECHO ---
Name: MICHAEL THOMPSON Exam:Adult Echocardiogram Study Date: 08/03/2019 11:30 AM Age: 68 yrs Height: 72 in Weight: 196 lb BSA: 2.1 m2 MMode/2D Measurements & Calculations IVSd: 1.0 cm Ao root diam: 2.3 cm LVIDd: 4.4 cm LA dimension: 3.8 cm LVIDs: 3.3 cm LVPWd: 1.1 cm LVPWs: 1.7 cm EDV(Teich): 86.6 ml ESV(Teich): 43.6 ml LVOT diam: 2.1 cm LAV (MOD-bp): 54.0 ml RV S John: 12.8 cm/sec Doppler Measurements & Calculations MV E max john: 67.1 cm/sec Ao V2 max: 299.0 cm/sec MV A max john: 40.0 cm/sec Ao max P.9 mmHg MV E/A: 1.7 Ao V2 mean: 203.3 cm/sec MV dec time: 0.14 sec Ao mean P.4 mmHg Ao V2 VTI: 69.8 cm LUC(I,D): 1.1 cm2 AI P1/2t: 712.0 msec LUC(V,D): 1.1 cm2 AI max john: 343.7 cm/sec LV V1 max P.6 mmHg AI max P.3 mmHg LV V1 mean P.2 mmHg AI dec slope: 141.4 cm/sec2 LV V1 max: 94.8 cm/sec LV V1 mean: 70.3 cm/sec LV V1 VTI: 21.8 cm MR max john: 381.6 cm/sec SV(LVOT): 78.9 ml MR max P.2 mmHg TR max john: 155.5 cm/sec PA V2 max: 78.0 cm/sec TR max P.7 mmHg PA max P.5 mmHg Med Peak E' John: 3.8 cm/sec Med E/e': 17.7 Lat Peak E' John: 10.3 cm/sec Lat E/e': 6.5 Left Ventricle Left ventricular systolic function is normal. Ejection Fraction = 55-60%. Right Ventricle There is a pacemaker lead in the right ventricle. The right ventricle is grossly normal size. The rig ht ventricular systolic function is grossly normal. Atria The left atrium is borderline dilated. Right atrial size is normal. Mitral Valve The mitral valve is normal in structure and function. There is no mitral valve stenosis. There is mil d mitral regurgitation. Tricuspid Valve The tricuspid valve is normal in structure and function. There is mild tricuspid regurgitation. Right ventricular systolic pressure is normal. Aortic Valve Moderate valvular aortic stenosis. Mild aortic regurgitation. Pulmonic Valve The pulmonic valve is not well seen, but is grossly normal. There is no pulmonic valvular stenosis. T race pulmonic valvular regurgitation. Great Vessels Borderline aortic root dilatation. Pericardium/Pleura There is no pericardial effusion. Interpretation Summary Left ventricular systolic function is normal. Ejection Fraction = 55-60%. There is a pacemaker lead in the right ventricle. The left atrium is borderline dilated. There is mild mitral regurgitation. There is mild tricuspid regurgitation. Moderate valvular aortic stenosis. Mild aortic regurgitation. There is no pericardial effusion. MD Holcomb *Jennifer 08/03/2019 01:05 PM
[2019-08-03] MEDS ORDERED: INSULIN (NOVOLOG) ASPART 100 UNITS/ML 10ML VIAL ONE (13:27)
--- NOTE | 2019-08-03 14:08 | EKG ---
Test Reason : Blood Pressure : / mmHG Vent. Rate : 063 BPM Atrial Rate : 063 BPM P-R Int : 208 ms QRS Dur : 078 ms QT Int : 416 ms P-R-T Axes : 000 001 006 degrees QTc Int : 425 ms POOR DATA QUALITY, INTERPRETATION MAY BE ADVERSELY AFFECTED Atrial-paced rhythm ABNORMAL ECG WHEN COMPARED WITH ECG OF 04-APR-2017 22:38, NO SIGNIFICANT CHANGE WAS FOUND Confirmed by RENETTA YEBOAH MD ([id number]) on 08/03/2019 2:07:54 PM Referred By: Confirmed By:RENETTA YEBOAH MD
--- NOTE | 2019-08-03 14:52 | HP ---
Admitting History and Physical - Admission History of Present Illness: The patient is a year old male, with a significant past medical history of anemia, HTN, HLD, CAD(s/p cardiac stents), pacemaker, CHF and cirrhosis, who presented to the emergency department with worsening bilateral lower extremity edema, dyspnea, and orthopnea. Pt was given IV lasix by his PMD and sent to the ER. - Past Medical History Cardiovascular: Yes: CAD, CHF, HTN, Hyperlipdemia Gastrointestinal: Yes: Other (Cirrhosis) Heme/Onc: Yes: Anemia - Past Surgical History Past Surgical History: Yes: Permanent Pacemaker - Smoking History Smoking history: Former smoker Have you smoked in the past 12 months: No Aproximately how many cigarettes per day: 0 If you are a former smoker, when did you quit?: 12 YEARS AGO - Alcohol/Substance Use Hx Alcohol Use: No Home Medications - Allergies Allergies/Adverse Reactions: Allergies Allergy/AdvReac Type Severity Reaction Status Date / Time No Known Allergies Allergy Verified 08/02/19 14:01 - Home Medications Home Medications: Ambulatory Orders Aspirin [ASA -] 81 mg PO DAILY 06/04/12 Cholecalciferol (Vitamin D3) [Vitamin D3] 2,000 unit PO DAILY 04/04/17 Atorvastatin Ca [Lipitor] 20 mg PO HS 08/02/19 Carvedilol 12.5 mg PO BID 08/02/19 Cyanocobalamin [Vitamin B12 -] 1,000 mcg PO DAILY 08/02/19 Furosemide 40 mg PO DAILY 08/02/19 Insulin (Levemir) [Levemir Vial] 8 unit SQ HS 08/02/19 Insulin Lispro [Humalog] 5 unit SQ AC 08/02/19 Magnesium Oxide [Magnesium] 0.5 tab PO QID 08/02/19 Multivit-Min/Ferrous Fumarate [Gdjqnxwo-I-F with Minerals] 1 each PO DAILY 08/02 Tacrolimus Anhydrous [Prograf] 1 mg PO BID 08/02/19 Ubidecarenone [Co Q-10] 1 tab DAILY 08/02/19 Vitamin E 100 unit PO DAILY 08/02/19 traZODone HCL [Trazodone HCl] 50 mg PO HS 08/02/19 Family Medical History Family History: Unremarkable Review of Systems - Review of Systems Constitutional: reports: No Symptoms Eyes: reports: No Symptoms HENT: reports: No Symptoms Neck: reports: No Symptoms Cardiovascular: reports: Shortness of Breath Respiratory: reports: SOB Gastrointestinal: reports: No Symptoms Genitourinary: reports: No Symptoms Physical Examination Vital Signs: Vital Signs Temperature 97.8 F 08/03/19 09:26 Pulse Rate 59 L 08/03/19 09:26 Respiratory Rate 20 08/03/19 09:26 Blood Pressure 109/61 08/03/19 09:26 O2 Sat by Pulse Oximetry (%) 96 08/03/19 09:26 Eyes: Yes: WNL HENT: Yes: WNL Neck: Yes: WNL, Supple Cardiovascular: Yes: WNL, Regular Rate and Rhythm Respiratory: Yes: Rales Gastrointestinal: Yes: WNL, Normal Bowel Sounds, Soft Extremities: Yes: Other ((+) erythema RLE) Edema: LLE: 1+, RLE: 1+ Labs: CBC, BMP 08/03/19 06:35 08/03/19 06:35 Problem List - Problems (1) Acute on chronic diastolic CHF (congestive heart failure) Assessment/Plan: Cont IV lasix Cont coreg Monitor electrolytes CTA chest showed pleural effusion Check echo Cardio consult Code(s): I50.33 - ACUTE ON CHRONIC DIASTOLIC (CONGESTIVE) HEART FAILURE (2) Azotemia Assessment/Plan: Renal consult noted Code(s): R79.89 - OTHER SPECIFIED ABNORMAL FINDINGS OF BLOOD CHEMISTRY (3) COPD (chronic obstructive pulmonary disease) Assessment/Plan: CTA chest showed pleural effusion Code(s): J44.9 - CHRONIC OBSTRUCTIVE PULMONARY DISEASE, UNSPECIFIED (4) Diabetes Assessment/Plan: Cont sliding scale w/ coverage Cont levemir/humalog Code(s): E11.9 - TYPE 2 DIABETES MELLITUS WITHOUT COMPLICATIONS (5) Liver cirrhosis Code(s): K74.60 - UNSPECIFIED CIRRHOSIS OF LIVER (6) HTN (hypertension) Assessment/Plan: BP stable Code(s): I10 - ESSENTIAL (PRIMARY) HYPERTENSION (7) HLD (hyperlipidemia) Assessment/Plan: Cont lipitor Code(s): E78.5 - HYPERLIPIDEMIA, UNSPECIFIED (8) S/P liver transplant Assessment/Plan: Cont prograf Code(s): Z94.4 - LIVER TRANSPLANT STATUS (9) H/O heart artery stent Code(s): Z95.5 - PRESENCE OF CORONARY ANGIOPLASTY IMPLANT AND GRAFT
--- NOTE | 2019-08-03 15:15 | CON.ID ---
Consult Consult Specialty:: infectious diseases Referred by:: Reason for Consultation:: swelling and cellulitis of the legs - History of Present Illness Chief Complaint: swelling of both legs History of Present Illness: 68M PMH DM, HTN, CHF s/p AICD/PPM on home O2 (2.5L), AF w/ watchmen, Liver transplant (2016 on tacrolimus), b/l LE pitting edema w/ R > L and generalized fatigue. Not normally edematous. Sx appeared days ago. Fatigue x 1 week. Has 6 mo h/o sob and orthopnea, has not worsened. Denies f/c/cp/n/v/ patient also mentions that the redness of the leg has increased. - History Source History Provided By: Patient Limitations to Obtaining History: No Limitations - Past Medical History Cardio/Vascular: Yes: CAD, CHF, HTN, Hyperlipdemia - Past Surgical History Past Surgical History: Yes: Permanent Pacemaker - Alcohol/Substance Use Hx Alcohol Use: No - Smoking History Smoking history: Former smoker Have you smoked in the past 12 months: No Aproximately how many cigarettes per day: 0 If you are a former smoker, when did you quit?: 12 YEARS AGO Home Medications - Allergies Allergies/Adverse Reactions: Allergies Allergy/AdvReac Type Severity Reaction Status Date / Time No Known Allergies Allergy Verified 08/02/19 14:01 - Home Medications Home Medications: Ambulatory Orders RX: Aspirin [ASA -] 81 mg PO DAILY 06/04/12 RX: Cholecalciferol (Vitamin D3) [Vitamin D3] 2,000 unit PO DAILY 04/04/17 Atorvastatin Ca [Lipitor] 20 mg PO HS 08/02/19 Cyanocobalamin [Vitamin B12 -] 1,000 mcg PO DAILY 08/02/19 Insulin (Levemir) [Levemir Vial] 8 unit SQ HS 08/02/19 Insulin Lispro [Humalog] 5 unit SQ AC 08/02/19 Magnesium Oxide [Magnesium] 0.5 tab PO QID 08/02/19 Multivit-Min/Ferrous Fumarate [Klrdrjkw-H-M with Minerals] 1 each PO DAILY 08/02 RX: Carvedilol 12.5 mg PO BID 08/02/19 RX: Furosemide 40 mg PO DAILY 08/02/19 RX: Vitamin E 100 unit PO DAILY 08/02/19 Tacrolimus Anhydrous [Prograf] 1 mg PO BID 08/02/19 Ubidecarenone [Co Q-10] 1 tab DAILY 08/02/19 traZODone HCL [Trazodone HCl] 50 mg PO HS 08/02/19 Review of Systems - Review of Systems Constitutional: reports: No Symptoms Eyes: reports: No Symptoms HENT: reports: No Symptoms Neck: reports: No Symptoms Cardiovascular: reports: Shortness of Breath Respiratory: reports: No Symptoms Gastrointestinal: reports: No Symptoms Musculoskeletal: reports: Other Integumentary: reports: Change in Color, Erythema Neurological: reports: No Symptoms Endocrine: reports: No Symptoms Hematology/Lymphatic: reports: No Symptoms Psychiatric: reports: No Symptoms Physical Exam Vital Signs: Vital Signs Temperature 97.7 F 08/03/19 14:00 Pulse Rate 69 08/03/19 14:00 Respiratory Rate 20 08/03/19 14:00 Blood Pressure 110/61 08/03/19 14:00 O2 Sat by Pulse Oximetry (%) 96 08/03/19 09:26 Constitutional: Yes: Well Nourished, No Distress, Calm Eyes: Yes: Conjunctiva Clear HENT: Yes: Atraumatic, Normocephalic Cardiovascular: Yes: Pulse Irregular, S1, S2 Respiratory: Yes: Regular, CTA Bilaterally Gastrointestinal: Yes: Normal Bowel Sounds, Soft Musculoskeletal: Yes: WNL Extremities: Yes: Erythema, Other Neurological: Yes: Alert, Oriented Psychiatric: Yes: Alert, Oriented Labs: CBC, BMP 08/03/19 06:35 08/03/19 06:35 Imaging - Results Chest X-ray: Report Reviewed, Image Reviewed Cat Scan: Report Reviewed, Image Reviewed Assessment/Plan Problem List - Problems (1) Acute on chronic diastolic CHF (congestive heart failure) Code(s): I50.33 - ACUTE ON CHRONIC DIASTOLIC (CONGESTIVE) HEART FAILURE (2) Azotemia Code(s): R79.89 - OTHER SPECIFIED ABNORMAL FINDINGS OF BLOOD CHEMISTRY (3) COPD (chronic obstructive pulmonary disease) Code(s): J44.9 - CHRONIC OBSTRUCTIVE PULMONARY DISEASE, UNSPECIFIED (4) Diabetes Code(s): E11.9 - TYPE 2 DIABETES MELLITUS WITHOUT COMPLICATIONS (5) Liver cirrhosis Code(s): K74.60 - UNSPECIFIED CIRRHOSIS OF LIVER (6) HTN (hypertension) Code(s): I10 - ESSENTIAL (PRIMARY) HYPERTENSION (7) HLD (hyperlipidemia) Code(s): E78.5 - HYPERLIPIDEMIA, UNSPECIFIED (8) S/P liver transplant Code(s): Z94.4 - LIVER TRANSPLANT STATUS (9) H/O heart artery stent Code(s): Z95.5 - PRESENCE OF CORONARY ANGIOPLASTY IMPLANT AND GRAFT cellulitis of the leg paln continue abx diuretics elevation of legs rest as per the team
--- NOTE | 2019-08-03 17:11 | CONSULT ---
Consult Consult Specialty:: Nephrology Reason for Consultation:: azotemia - History of Present Illness Chief Complaint: edema and shortness of breath History of Present Illness: Pt is a 68 year old male with pmhx of dm, htn, chf with aicd and ppm, liver transplant in 2017 who was sent in for edema and increased shortness of breath. I was called to evaluate him for azotemia. He is on lasix at home. He did have progresso soup for a few days in row. He is not compliant with salt restriction. He was given lasix and he says that it did help him. His lower ext edema is improving. - History Source History Provided By: Patient, Medical Record - Past Medical History Cardio/Vascular: Yes: CAD, CHF, HTN, Hyperlipdemia - Past Surgical History Past Surgical History: Yes: Permanent Pacemaker Additional Surgical History: lover transplant - Alcohol/Substance Use Hx Alcohol Use: No - Smoking History Smoking history: Former smoker Have you smoked in the past 12 months: No Aproximately how many cigarettes per day: 0 If you are a former smoker, when did you quit?: 12 YEARS AGO Home Medications - Allergies Allergies/Adverse Reactions: Allergies Allergy/AdvReac Type Severity Reaction Status Date / Time No Known Allergies Allergy Verified 08/02/19 14:01 - Home Medications Home Medications: Ambulatory Orders Aspirin [ASA -] 81 mg PO DAILY 06/04/12 Cholecalciferol (Vitamin D3) [Vitamin D3] 2,000 unit PO DAILY 04/04/17 Atorvastatin Ca [Lipitor] 20 mg PO HS 08/02/19 Carvedilol 12.5 mg PO BID 08/02/19 Cyanocobalamin [Vitamin B12 -] 1,000 mcg PO DAILY 08/02/19 Furosemide 40 mg PO DAILY 08/02/19 Insulin (Levemir) [Levemir Vial] 8 unit SQ HS 08/02/19 Insulin Lispro [Humalog] 5 unit SQ AC 08/02/19 Magnesium Oxide [Magnesium] 0.5 tab PO QID 08/02/19 Multivit-Min/Ferrous Fumarate [Gihptvjc-P-H with Minerals] 1 each PO DAILY 08/02 Tacrolimus Anhydrous [Prograf] 1 mg PO BID 08/02/19 Ubidecarenone [Co Q-10] 1 tab DAILY 08/02/19 Vitamin E 100 unit PO DAILY 08/02/19 traZODone HCL [Trazodone HCl] 50 mg PO HS 08/02/19 Family Medical History Family History: Denies Review of Systems - Review of Systems Constitutional: reports: Malaise Eyes: reports: No Symptoms HENT: reports: No Symptoms Neck: reports: No Symptoms Cardiovascular: reports: Edema Respiratory: reports: SOB, SOB on Exertion Gastrointestinal: reports: No Symptoms Genitourinary: reports: No Symptoms Musculoskeletal: reports: No Symptoms Integumentary: reports: No Symptoms Neurological: reports: No Symptoms Endocrine: reports: No Symptoms Hematology/Lymphatic: reports: No Symptoms Psychiatric: reports: No Symptoms Physical Exam Vital Signs: Vital Signs Temperature 97.7 F 08/03/19 14:00 Pulse Rate 69 08/03/19 14:00 Respiratory Rate 20 08/03/19 14:00 Blood Pressure 110/61 08/03/19 14:00 O2 Sat by Pulse Oximetry (%) 96 08/03/19 09:26 Constitutional: Yes: Calm Eyes: Yes: Conjunctiva Clear HENT: Yes: Atraumatic Cardiovascular: Yes: S1, S2 Respiratory: Yes: CTA Bilaterally, On Nasal O2 Gastrointestinal: Yes: Normal Bowel Sounds, Soft Renal/: Yes: WNL Musculoskeletal: Yes: WNL Edema: Yes Edema: LLE: 1+, RLE: 1+ Neurological: Yes: Oriented Psychiatric: Yes: Oriented Labs: CBC, BMP 08/03/19 06:35 08/03/19 06:35 Laboratory Tests 08/02/19 15:30 BUN 26.6 H Creatinine 1.2 B-Natriuretic Peptide 886.8 H Imaging - Results Chest X-ray: Report Reviewed Problem List - Problems (1) Azotemia Code(s): R79.89 - OTHER SPECIFIED ABNORMAL FINDINGS OF BLOOD CHEMISTRY (2) CHF (congestive heart failure) Code(s): I50.9 - HEART FAILURE, UNSPECIFIED Qualifiers: Heart failure type: unspecified Heart failure chronicity: unspecified Qualified Code(s): I50.9 - Heart failure, unspecified (3) Liver cirrhosis Code(s): K74.60 - UNSPECIFIED CIRRHOSIS OF LIVER (4) S/P liver transplant Code(s): Z94.4 - LIVER TRANSPLANT STATUS Assessment/Plan Current Medications Generic Name Dose Route Start Last Admin Trade Name Freq PRN Reason Stop Dose Admin Aspirin 81 mg 08/03/19 10:00 08/03/19 09:36 Asa - PO 81 mg DAILY LYNN Administration Atorvastatin Calcium 20 mg 08/03/19 22:00 Lipitor - PO HS LYNN Carvedilol 12.5 mg 08/03/19 10:00 08/03/19 09:36 Coreg - PO 12.5 mg BID LYNN Administration Furosemide 40 mg 08/03/19 10:00 08/03/19 09:36 Lasix Injection - IVPUSH 40 mg DAILY [facility] Administration Heparin Sodium (Porcine) 5,000 unit 08/03/19 10:00 08/03/19 09:36 Heparin - SQ 5,000 unit BID [facility] Administration Cefazolin Sodium 1 gm/ 50 mls @ 100 mls/hr 08/03/19 02:00 08/03/19 09:35 Dextrose IVPB 100 mls/hr Q8H-IV LYNN Administration Insulin Aspart 1 vial 08/03/19 07:00 08/03/19 13:28 Novolog Vial Sliding Scale - SQ 2 units ACHS [facility] Administration Protocol Insulin Detemir 8 units 08/03/19 22:00 Levemir Vial SQ HS [facility] Lisinopril 2.5 mg 08/03/19 10:00 08/03/19 09:38 Prinivil PO 2.5 mg DAILY LYNN Administration Non-Formulary Medication 5 unit 08/03/19 00:15 Insulin Lispro [Humalog] SQ AC [facility] Tacrolimus 1 mg 08/03/19 10:00 08/03/19 10:30 Prograf PO 1 mg BID LYNN Administration Trazodone HCl 50 mg 08/03/19 04:45 08/03/19 04:39 Desyrel - PO 50 mg HS [facility] Administration Impression 1. fluid overload 2. azotemia 3. liver transplant 4. chf 5. dm 6. htn Plan - monitor renal function - volume status stable - GI eval for liver transplant - can cont alfredo for now - discussed 2 gram sodium diet - volume status improving
--- NOTE | 2019-08-03 20:42 | PN ---
Progress Note, Physician Chief Complaint: Pt A&Ox3; OOB in chair; no chest pain or dyspnea. History of Present Illness: The patient is a 68 year old white male, with a significant past medical history of anemia, HTN, HLD, diastolic CHF s/p DDDR PPM, AF s/p Watchman (no longer on anticoagulation), CAD-->coronary stents, COPD, on home O2, DM, cirrhosis, s/p liver transplant ([place] 2016; on Tarcrolimus), who presents to the emergency department with, worsening bilateral lower extremity edema, dyspnea, fatigue, and orthopnea x one week.. As per patient, he ate canned soup just prior to the onset of his symptoms; denies nausea, vomiting, diarrhea, constipation, dysuria, frequency, urgency, or hematuria. He notes visiting his PCP, Dr. Garcia who gave him IV Lasix and advised him to report to the ED. Allergies: NKDA Not normally edematous. Sx appeared days ago. Has 6 mo h/o sob and orthopnea, has not worsened. Former smoker (quit 2006) - Current Medication List Current Medications: Active Medications Aspirin (Asa -) 81 mg PO DAILY REPLACED BY [facility] Last Admin: 08/03/19 09:36 Dose: 81 mg Atorvastatin Calcium (Lipitor -) 20 mg PO HS REPLACED BY [facility] Carvedilol (Coreg -) 12.5 mg PO BID REPLACED BY [facility] Last Admin: 08/03/19 09:36 Dose: 12.5 mg Furosemide (Lasix Injection -) 40 mg IVPUSH DAILY REPLACED BY [facility] Last Admin: 08/03/19 09:36 Dose: 40 mg Heparin Sodium (Porcine) (Heparin -) 5,000 unit SQ BID REPLACED BY [facility] Last Admin: 08/03/19 09:36 Dose: 5,000 unit Cefazolin Sodium 1 gm/ (Dextrose) 50 mls @ 100 mls/hr IVPB Q8H-IV REPLACED BY [facility] Last Admin: 08/03/19 17:21 Dose: 100 mls/hr Insulin Aspart (Novolog Vial Sliding Scale -) 1 vial SQ [facility] REPLACED BY [facility]; Protocol Last Admin: 08/03/19 13:28 Dose: 2 units Insulin Detemir (Levemir Vial) 8 units SQ [facility] Lisinopril (Prinivil) 2.5 mg PO DAILY REPLACED BY [facility] Last Admin: 08/03/19 09:38 Dose: 2.5 mg Non-Formulary Medication (Insulin Lispro [Humalog]) 5 unit SQ AC REPLACED BY [facility] Tacrolimus (Prograf) 1 mg PO BID REPLACED BY [facility] Last Admin: 08/03/19 10:30 Dose: 1 mg Trazodone HCl (Desyrel -) 50 mg PO [facility] Last Admin: 08/03/19 04:39 Dose: 50 mg - Objective Vital Signs: Vital Signs Temperature 98.3 F 08/03/19 18:00 Pulse Rate 60 08/03/19 18:00 Respiratory Rate 20 08/03/19 18:00 Blood Pressure 126/75 08/03/19 18:00 O2 Sat by Pulse Oximetry (%) 96 08/03/19 09:26 Labs: CBC, BMP 08/03/19 06:35 08/03/19 06:35 Problem List - Problems (1) Liver cirrhosis Code(s): K74.60 - UNSPECIFIED CIRRHOSIS OF LIVER (2) S/P liver transplant Code(s): Z94.4 - LIVER TRANSPLANT STATUS (3) H/O heart artery stent Assessment/Plan: ? most recently 2006 F/u prior cardiac workup Code(s): Z95.5 - PRESENCE OF CORONARY ANGIOPLASTY IMPLANT AND GRAFT (4) ASHD (arteriosclerotic heart disease) Code(s): I25.10 - ATHSCL HEART DISEASE OF [place] CORONARY ARTERY W/O ANG PCTRS (5) HLD (hyperlipidemia) Code(s): E78.5 - HYPERLIPIDEMIA, UNSPECIFIED (6) HTN (hypertension) Code(s): I10 - ESSENTIAL (PRIMARY) HYPERTENSION (7) Aortic stenosis Code(s): I35.0 - NONRHEUMATIC AORTIC (VALVE) STENOSIS (8) Pacemaker Code(s): Z95.0 - PRESENCE OF CARDIAC PACEMAKER (9) CHF (congestive heart failure) Code(s): I50.9 - HEART FAILURE, UNSPECIFIED Qualifiers: Heart failure type: unspecified Heart failure chronicity: unspecified Qualified Code(s): I50.9 - Heart failure, unspecified (10) Diabetes Code(s): E11.9 - TYPE 2 DIABETES MELLITUS WITHOUT COMPLICATIONS (11) COPD (chronic obstructive pulmonary disease) Code(s): J44.9 - CHRONIC OBSTRUCTIVE PULMONARY DISEASE, UNSPECIFIED (12) Acute on chronic diastolic CHF (congestive heart failure) Assessment/Plan: +JVP CXR: right pleural effusion BNP >800 ECHO: normal LVEF; mild TR, with normal RVSP; moderate , mild AR CTA chest: no definite PE (limited view of RLL due to moderate plueral effusion) ; no pericardial effusion; no aortic aneurysm or dissection; mildly dilated PA; repeat study (or CXR) suggested to better assses area of initial limitation. Continue carvedilol, lisinopril, and furosemide. On antibiotics. Daily weight; Is and Os; BUN/Cr; electrolytes. Code(s): I50.33 - ACUTE ON CHRONIC DIASTOLIC (CONGESTIVE) HEART FAILURE
[2019-08-03] MEDS: ATORVASTATIN CA 20 MG TABLET (FP) PO SCH (21:27)
[2019-08-03] MEDS: INSULIN (LEVEMIR) 100 UNITS/ML UNITS SQ SCH (21:27)
[2019-08-04] MEDS ORDERED: DEXTROSE 5%-WATER - 50 ML IVPB ONE ×3 (01:56→15:58)
[2019-08-04] MEDS ORDERED: ceFAZolin SODIUM 1 GM VIAL ONE ×3 (01:56→15:58)
[2019-08-04] MEDS: CEFAZOLIN 1 GM in DEXTROSE 5%-WATER - 50 ML IVPB SCH ×3 (03:00→17:21)
[2019-08-04] MEDS: INSULIN SLIDING SCALE (NOVOLOG) 1 VIAL SQ SCH ×5 (06:47→22:38)
[2019-08-04 07:26] LABS: ALBUMIN 3.6 g/dl (3.4-5.0); ALK PHOS 111 U/L (45-117); ANION GAP 4 MMOL/L (8-16); BLOOD UREA NITROGEN 27.8 mg/dL (7-18); CALCIUM 8.7 mg/dL (8.5-10.1); CHLORIDE 102 mmol/L (98-107); CO2 32 mmol/L (21-32); CREATININE 1.1 mg/dL (0.55-1.3); GLUCOSE,RANDOM 113 mg/dL (74-106); POTASSIUM 4.5 mmol/L (3.5-5.1); SGOT/AST 17 U/L (15-37); SGPT/ALT 19 U/L (13-61); SODIUM 138 mmol/L (136-145); TOT PROT 6.7 g/dl (6.4-8.2)
[2019-08-04] MEDS: HEPARIN NA (PORCINE) 5,000 UNITS/ML 1ML VIAL SQ SCH ×2 (10:39→22:09)
[2019-08-04] MEDS: FUROSEMIDE 40 MG/4 ML INJECTABLE VIAL IVPUSH SCH (10:39)
[2019-08-04] MEDS: LISINOPRIL 5 MG TABLET (FP) PO SCH (10:39)
[2019-08-04] MEDS: ASPIRIN 81 MG CHEWABLE TABLETS PO SCH (10:40)
[2019-08-04] MEDS: TACROLIMUS ANHYDROUS 1 MG CAPSULE PO SCH ×2 (10:41→22:10)
[2019-08-04] MEDS: CARVEDILOL 12.5 MG TABLET (FP) PO SCH ×2 (10:41→22:14)
--- NOTE | 2019-08-04 11:19 | PN ---
Progress Note, Physician History of Present Illness: patient doing well swelling of the leg improving redness better - Current Medication List Current Medications: Active Medications Aspirin (Asa -) 81 mg PO DAILY [facility] Last Admin: 08/04/19 10:40 Dose: 81 mg Atorvastatin Calcium (Lipitor -) 20 mg PO HS [facility] Last Admin: 08/03/19 21:27 Dose: 20 mg Carvedilol (Coreg -) 12.5 mg PO BID [facility] Last Admin: 08/04/19 10:41 Dose: 12.5 mg Furosemide (Lasix Injection -) 40 mg IVPUSH DAILY [facility] Last Admin: 08/04/19 10:39 Dose: 40 mg Heparin Sodium (Porcine) (Heparin -) 5,000 unit SQ BID [facility] Last Admin: 08/04/19 10:39 Dose: 5,000 unit Cefazolin Sodium 1 gm/ (Dextrose) 50 mls @ 100 mls/hr IVPB Q8H-IV [facility] Last Admin: 08/04/19 10:41 Dose: 100 mls/hr Insulin Aspart (Novolog Vial Sliding Scale -) 1 vial SQ [facility]; Protocol Last Admin: 08/04/19 06:47 Dose: Not Given Insulin Detemir (Levemir Vial) 8 units SQ [facility] Last Admin: 08/03/19 21:27 Dose: 6 units Lisinopril (Prinivil) 2.5 mg PO DAILY [facility] Last Admin: 08/04/19 10:39 Dose: 2.5 mg Non-Formulary Medication (Insulin Lispro [Humalog]) 5 unit SQ [facility] Tacrolimus (Prograf) 1 mg PO BID [facility] Last Admin: 08/04/19 10:41 Dose: 1 mg Trazodone HCl (Desyrel -) 50 mg PO [facility] Last Admin: 08/03/19 21:27 Dose: 50 mg - Objective Vital Signs: Vital Signs Temperature 98 F 08/04/19 10:00 Pulse Rate 62 08/04/19 10:00 Respiratory Rate 20 08/04/19 10:00 Blood Pressure 100/58 L 08/04/19 10:00 O2 Sat by Pulse Oximetry (%) 88 L 08/03/19 22:00 Constitutional: Yes: No Distress, Calm Cardiovascular: Yes: S1, S2 Respiratory: Yes: Regular, CTA Bilaterally Gastrointestinal: Yes: Normal Bowel Sounds, Soft Musculoskeletal: Yes: WNL Edema: RLE: 1+ Neurological: Yes: Alert, Oriented Psychiatric: Yes: Alert, Oriented Labs: CBC, BMP 08/03/19 06:35 08/04/19 06:15 Assessment/Plan Problem List - Problems (1) Acute on chronic diastolic CHF (congestive heart failure) Code(s): I50.33 - ACUTE ON CHRONIC DIASTOLIC (CONGESTIVE) HEART FAILURE (2) Azotemia Code(s): R79.89 - OTHER SPECIFIED ABNORMAL FINDINGS OF BLOOD CHEMISTRY (3) COPD (chronic obstructive pulmonary disease) Code(s): J44.9 - CHRONIC OBSTRUCTIVE PULMONARY DISEASE, UNSPECIFIED (4) Diabetes Code(s): E11.9 - TYPE 2 DIABETES MELLITUS WITHOUT COMPLICATIONS (5) Liver cirrhosis Code(s): K74.60 - UNSPECIFIED CIRRHOSIS OF LIVER (6) HTN (hypertension) Code(s): I10 - ESSENTIAL (PRIMARY) HYPERTENSION (7) HLD (hyperlipidemia) Code(s): E78.5 - HYPERLIPIDEMIA, UNSPECIFIED (8) S/P liver transplant Code(s): Z94.4 - LIVER TRANSPLANT STATUS (9) H/O heart artery stent Code(s): Z95.5 - PRESENCE OF CORONARY ANGIOPLASTY IMPLANT AND GRAFT cellulitis of the leg paln continue current mgmt will see how patient does
--- NOTE | 2019-08-04 11:51 | PN ---
Progress Note (short form) - Note Progress Note: Coverage for Dr. Troy Aj Chief Complaint: Events noted, notes reviewed, dyspnea and peripheral edema improved, denies any chest pain History of Present Illness: Seen and examined on telemetry. Events noted, notes reviewed, dyspnea and peripheral edema improved, denies any chest pain - Current Medication List Current Medications Aspirin (Asa -) 81 mg PO DAILY [facility] Last Admin: 08/04/19 10:40 Dose: 81 mg Atorvastatin Calcium (Lipitor -) 20 mg PO [facility] Last Admin: 08/03/19 21:27 Dose: 20 mg Carvedilol (Coreg -) 12.5 mg PO BID [facility] Last Admin: 08/04/19 10:41 Dose: 12.5 mg Furosemide (Lasix Injection -) 40 mg IVPUSH DAILY [facility] Last Admin: 08/04/19 10:39 Dose: 40 mg Heparin Sodium (Porcine) (Heparin -) 5,000 unit SQ BID [facility] Last Admin: 08/04/19 10:39 Dose: 5,000 unit Cefazolin Sodium 1 gm/ (Dextrose) 50 mls @ 100 mls/hr IVPB Q8H-IV [facility] Last Admin: 08/04/19 10:41 Dose: 100 mls/hr Insulin Aspart (Novolog Vial Sliding Scale -) 1 vial SQ [facility]; Protocol Last Admin: 08/04/19 06:47 Dose: Not Given Insulin Detemir (Levemir Vial) 8 units SQ [facility] Last Admin: 08/03/19 21:27 Dose: 6 units Lisinopril (Prinivil) 2.5 mg PO DAILY [facility] Last Admin: 08/04/19 10:39 Dose: 2.5 mg Non-Formulary Medication (Insulin Lispro [Humalog]) 5 unit SQ [facility] Tacrolimus (Prograf) 1 mg PO BID [facility] Last Admin: 08/04/19 10:41 Dose: 1 mg Trazodone HCl (Desyrel -) 50 mg PO [facility] Last Admin: 08/03/19 21:27 Dose: 50 mg Review of Systems - Review of Systems Constitutional: no symptoms reported Respiratory: denies Cough or Sputum Production Cardiovascular: as noted above Gastrointestinal: denies Nausea, Vomiting, Diarrhea, Constipation or Abdominal Pain Genitourinary: no symptoms reported Musculoskeletal: no symptoms reported Endocrine: no symptoms reported - Objective Vital Signs: Last Vital Signs Temp Pulse Resp BP Pulse Ox 98 F 62 20 100/58 L 88 L 08/04/19 10:00 08/04/19 10:00 08/04/19 10:00 08/04/19 10:00 08/03/19 22:00 Intake & Output 08/01/19 08/02/19 08/03/19 08/04/19 23:59 23:59 23:59 23:59 Intake Total 610 250 Balance 610 250 Weight 196 lb 198 lb Neck: Supple Negative JVD No Bruit Cardiovascular: S1 S2 Regular Rate and Rhythm Respiratory: Diminished Breath Sounds at the Bases Bilaterally Gastrointestinal: Soft Benign Normal Bowel Sounds Extremities: Trace Edema Labs: Troponin, BNP 08/04/19 06:15 Troponin I < 0.02 CBC, BMP 08/03/19 06:35 08/04/19 06:15 Hepatic Panel Total Bilirubin 1.0 mg/dL (0.2-1) 08/04/19 06:15 AST 17 U/L (15-37) 08/04/19 06:15 ALT 19 U/L (13-61) 08/04/19 06:15 Alkaline Phosphatase 111 U/L (45-117) 08/04/19 06:15 Albumin 3.6 g/dl (3.4-5.0) 08/04/19 06:15 Assessment/Plan ASSESSMENT: 1. Diastolic LV dysfunction with acute on chronic class I-II NYHA classification LV failure, clinically resolving 2. CAD post PCI/stent angina pectoris 3. PAF currently in sinus rhythm on no A/C post CHANDU closure device implant/ watchman device 4. Sinus node dysfunction pst PPM 5. Aortic stenosis 6. Hypertensive cardiovascular disease 7. DM 8. Hypercholesterolemia 9. COPD 10. Post liver transplant 11. CKD, acute exacerbation PLAN: 1. Continue Coreg 2. Continue Lisinopril 3. Continue Lipitior 4. Continue ASA 5. Continue Lasix and initiate PO therapy in 24-48 h 6. Additional cardiovascular evaluation as outpatient Mary Perez MD
[2019-08-04 13:42] LABS: URINE APPEARANCE CLEAR; URINE BILIRUBIN NEGATIVE (NEGATIVE); URINE COLOR YELLOW; URINE GLUCOSE (UA) NEGATIVE (NEGATIVE); URINE KETONE NEGATIVE (NEGATIVE); URINE LEUK ESTERASE NEGATIVE (NEGATIVE); URINE NITRITE NEGATIVE (NEGATIVE); URINE PROTEIN NEGATIVE (NEGATIVE); URINE UROBILINOGEN 0.2 mg/dL (0.2-1.0)
--- NOTE | 2019-08-04 18:38 | PN ---
Physical Exam: SUBJECTIVE: Patient seen and examined; doing well. Sitting in chair. Discussed plan with ID; noted CV input. Appreciate subspecialty coverage. Proviing coverage for Dr. Joshi Service. 10 sys RODS done and negative aside from HPI OBJECTIVE: Vital Signs Period Temp Pulse Resp BP Sys/Johansen Pulse Ox Last 24 Hr 97.5 F-98 F 60-68 20-20 100-123/58-69 88-88 GENERAL: The patient is awake, alert, and fully oriented, in no acute distress. HEAD: Normal with no signs of trauma. EYES: PERRL, extraocular movements intact, sclera anicteric, conjunctiva clear. No ptosis. ENT: Ears normal, nares patent, oropharynx clear without exudates, moist mucous membranes. NECK: Trachea midline, full range of motion, supple. LUNGS: Breath sounds equal, clear to auscultation bilaterally, no wheezes, no crackles, no accessory muscle use. HEART: Regular rate and rhythm, S1, S2 without murmur, rub or gallop. ABDOMEN: Soft, nontender, nondistended, normoactive bowel sounds, no guarding, no rebound, no hepatosplenomegaly, no masses. EXTREMITIES: 2+ pulses, warm, well-perfused, no edema. NEUROLOGICAL: Cranial nerves II through XII grossly intact. Normal speech, gait not observed. PSYCH: Normal mood, normal affect. SKIN: Warm, dry, normal turgor, no rashes or lesions noted Laboratory Results - last 24 hr 08/03/19 08/04/19 08/04/19 21:20 06:15 06:45 Sodium 138 Potassium 4.5 Chloride 102 Carbon Dioxide 32 Anion Gap 4 L BUN 27.8 H Creatinine 1.1 Est GFR (CKD-EPI)AfAm 80.08 Est GFR (CKD-EPI)NonAf 69.10 POC Glucometer 116 118 Random Glucose 113 H Calcium 8.7 Total Bilirubin 1.0 AST 17 ALT 19 Alkaline Phosphatase 111 Creatine Kinase 52 Troponin I < 0.02 Total Protein 6.7 Albumin 3.6 Urine Color Urine Appearance Urine pH Ur Specific [place] Urine Protein Urine Glucose (UA) Urine Ketones Urine Blood Urine Nitrite Urine Bilirubin Urine Urobilinogen Ur Leukocyte Esterase 08/04/19 08/04/19 08/04/19 12:16 13:00 16:22 Sodium Potassium Chloride Carbon Dioxide Anion Gap BUN Creatinine Est GFR (CKD-EPI)AfAm Est GFR (CKD-EPI)NonAf POC Glucometer 105 108 Random Glucose Calcium Total Bilirubin AST ALT Alkaline Phosphatase Creatine Kinase Troponin I Total Protein Albumin Urine Color Yellow Urine Appearance Clear Urine pH 5.0 Ur Specific [place] 1.008 L Urine Protein Negative Urine Glucose (UA) Negative Urine Ketones Negative Urine Blood Negative Urine Nitrite Negative Urine Bilirubin Negative Urine Urobilinogen 0.2 Ur Leukocyte Esterase Negative Active Medications Generic Name Dose Route Start Last Admin Trade Name Enzo PRN Reason Stop Dose Admin Aspirin 81 mg 08/03/19 10:00 08/04/19 10:40 Asa - PO 81 mg DAILY [facility]NN Administration Atorvastatin Calcium 20 mg 08/03/19 22:00 08/03/19 21:27 Lipitor - PO 20 mg HS LYNN Administration Carvedilol 12.5 mg 08/03/19 10:00 08/04/19 10:41 Coreg - PO 12.5 mg BID LYNN Administration Furosemide 40 mg 08/03/19 10:00 08/04/19 10:39 Lasix Injection - IVPUSH 40 mg DAILY [facility] Administration Heparin Sodium (Porcine) 5,000 unit 08/03/19 10:00 08/04/19 10:39 Heparin - SQ 5,000 unit BID [facility] Administration Cefazolin Sodium 1 gm/ 50 mls @ 100 mls/hr 08/03/19 02:00 08/04/19 17:21 Dextrose IVPB 100 mls/hr Q8H-IV [facility] Administration Insulin Aspart 1 vial 08/03/19 07:00 08/04/19 16:24 Novolog Vial Sliding Scale - SQ Not Given [facility] Protocol Insulin Detemir 8 units 08/03/19 22:00 08/03/19 21:27 Levemir Vial SQ 6 units HS [facility] Administration Lisinopril 2.5 mg 08/03/19 10:00 08/04/19 10:39 Prinivil PO 2.5 mg DAILY [facility] Administration Non-Formulary Medication 5 unit 08/03/19 00:15 Insulin Lispro [Humalog] SQ AC [facility] Tacrolimus 1 mg 08/03/19 10:00 08/04/19 10:41 Prograf PO 1 mg BID [facility]NN Administration Trazodone HCl 50 mg 08/03/19 04:45 08/03/19 21:27 Desyrel - PO 50 mg HS [facility] Administration ASSESSMENT/PLAN: Continues to improve; covering for Dr. Joshi. Continuing BB, HERMELINDA, ASA, Statin and convert to PO as per CV. -SOB 2/2 to HFpEF, diuresis and monitoring lytes as per cardiology. -CAD post PCI/stent angina pectoris -P-AF s/p watchman -SSS s/p PPM -, mgmt as per CV -H HTN -Hx HLD -Hx DM -SP liver XP -DULCE MARIA on CKD Visit type - Emergency Visit Emergency Visit: No - New Patient This patient is new to me today: Yes Date on this admission: 08/05/19 - Critical Care Critical Care patient: No
[2019-08-04] MEDS: ATORVASTATIN CA 20 MG TABLET (FP) PO SCH (22:08)
[2019-08-04] MEDS: traZODone HCL 50 MG TABLET (FP) PO SCH (22:09)
[2019-08-04] MEDS: INSULIN (LEVEMIR) 100 UNITS/ML UNITS SQ SCH (22:38)
[2019-08-05] MEDS ORDERED: ceFAZolin SODIUM 1 GM VIAL ONE ×3 (01:16→16:52)
[2019-08-05] MEDS ORDERED: DEXTROSE 5%-WATER - 50 ML IVPB ONE ×3 (01:16→16:53)
[2019-08-05] MEDS: CEFAZOLIN 1 GM in DEXTROSE 5%-WATER - 50 ML IVPB SCH ×3 (01:47→17:12)
[2019-08-05] MEDS: INSULIN SLIDING SCALE (NOVOLOG) 1 VIAL SQ SCH ×4 (06:22→21:45)
--- NOTE | 2019-08-05 07:58 | PN ---
Progress Note (short form) - Note Progress Note: Coverage for Dr. Troy Aj Chief Complaint: Events noted, notes reviewed, siiting in bed, dyspnea and peripheral edema clinically resolved, denies any chest pain History of Present Illness: Seen and examined on telemetry. Events noted, notes reviewed, siiting in bed, dyspnea and peripheral edema clinically resolved, denies any chest pain - Current Medication List Current Medications Aspirin (Asa -) 81 mg PO DAILY [facility] Last Admin: 08/04/19 10:40 Dose: 81 mg Atorvastatin Calcium (Lipitor -) 20 mg PO [facility] Last Admin: 08/04/19 22:08 Dose: 20 mg Carvedilol (Coreg -) 12.5 mg PO BID [facility] Last Admin: 08/04/19 22:14 Dose: 12.5 mg Furosemide (Lasix Injection -) 40 mg IVPUSH DAILY [facility] Last Admin: 08/04/19 10:39 Dose: 40 mg Heparin Sodium (Porcine) (Heparin -) 5,000 unit SQ BID [facility] Last Admin: 08/04/19 22:09 Dose: 5,000 unit Cefazolin Sodium 1 gm/ (Dextrose) 50 mls @ 100 mls/hr IVPB Q8H-IV [facility] Last Admin: 08/05/19 01:47 Dose: 100 mls/hr Insulin Aspart (Novolog Vial Sliding Scale -) 1 vial SQ [facility]; Protocol Last Admin: 08/05/19 06:22 Dose: Not Given Insulin Detemir (Levemir Vial) 8 units SQ [facility] Last Admin: 08/04/19 22:38 Dose: 8 units Lisinopril (Prinivil) 2.5 mg PO DAILY [facility] Last Admin: 08/04/19 10:39 Dose: 2.5 mg Non-Formulary Medication (Insulin Lispro [Humalog]) 5 unit SQ [facility] Tacrolimus (Prograf) 1 mg PO BID [facility] Last Admin: 08/04/19 22:10 Dose: 1 mg Trazodone HCl (Desyrel -) 50 mg PO [facility] Last Admin: 08/04/19 22:09 Dose: 50 mg Review of Systems - Review of Systems Constitutional: no symptoms reported Respiratory: denies Cough or Sputum Production Cardiovascular: as noted above Gastrointestinal: denies Nausea, Vomiting, Diarrhea, Constipation or Abdominal Pain Genitourinary: no symptoms reported Musculoskeletal: no symptoms reported Endocrine: no symptoms reported - Objective Vital Signs: Last Vital Signs Temp Pulse Resp BP Pulse Ox 97.8 F 65 20 121/70 88 L 08/04/19 22:00 08/05/19 02:00 08/05/19 02:00 08/05/19 02:00 08/04/19 22:00 Intake & Output 08/02/19 08/03/19 08/04/19 08/05/19 23:59 23:59 23:59 23:59 Intake Total 610 600 290 Output Total 300 Balance 610 600 -10 Weight 196 lb 198 lb Neck: Supple Negative JVD No Bruit Cardiovascular: S1 S2 Regular Rate and Rhythm Grade 2/6 ROMEL Respiratory: Diminished Breath Sounds at the Bases Bilaterally Gastrointestinal: Soft Benign Normal Bowel Sounds Extremities: Negative Edema Labs: CBC, BMP 08/03/19 06:35 08/04/19 06:15 Hepatic Panel Total Bilirubin 1.0 mg/dL (0.2-1) 08/04/19 06:15 AST 17 U/L (15-37) 08/04/19 06:15 ALT 19 U/L (13-61) 08/04/19 06:15 Alkaline Phosphatase 111 U/L (45-117) 08/04/19 06:15 Albumin 3.6 g/dl (3.4-5.0) 08/04/19 06:15 Assessment/Plan ASSESSMENT: 1. Diastolic LV dysfunction with acute on chronic class I-II NYHA classification LV failure, clinically resolving 2. CAD post PCI/stent angina pectoris 3. PAF currently in sinus rhythm on no A/C post CHANDU closure device implant/ Watchman device 4. Sinus node dysfunction post PPM 5. Aortic stenosis 6. Hypertensive cardiovascular disease 7. DM 8. Hypercholesterolemia 9. COPD 10. Post liver transplant 11. CKD, acute exacerbation PLAN: 1. Continue Coreg 2. Continue Lisinopril 3. Continue Lipitior 4. Continue ASA 5. Continue Lasix and initiate PO therapy 6. Additional cardiovascular evaluation as outpatient with primary ocean lifeguard Mary Perez MD
[2019-08-05] MEDS: FUROSEMIDE 40 MG/4 ML INJECTABLE VIAL IVPUSH SCH (09:51)
[2019-08-05] MEDS: LISINOPRIL 5 MG TABLET (FP) PO SCH (09:51)
[2019-08-05] MEDS: HEPARIN NA (PORCINE) 5,000 UNITS/ML 1ML VIAL SQ SCH ×2 (09:52→21:14)
[2019-08-05] MEDS: ASPIRIN 81 MG CHEWABLE TABLETS PO SCH (09:52)
[2019-08-05] MEDS: CARVEDILOL 12.5 MG TABLET (FP) PO SCH ×2 (09:52→21:14)
[2019-08-05] MEDS: TACROLIMUS ANHYDROUS 1 MG CAPSULE PO SCH ×2 (10:35→21:14)
--- NOTE | 2019-08-05 15:09 | PN ---
Progress Note, Physician History of Present Illness: stable no new issues - Current Medication List Current Medications: Active Medications Aspirin (Asa -) 81 mg PO DAILY [facility] Last Admin: 08/05/19 09:52 Dose: 81 mg Atorvastatin Calcium (Lipitor -) 20 mg PO [facility] Last Admin: 08/04/19 22:08 Dose: 20 mg Carvedilol (Coreg -) 12.5 mg PO BID [facility] Last Admin: 08/05/19 09:52 Dose: 12.5 mg Furosemide (Lasix -) 40 mg PO DAILY [facility] Heparin Sodium (Porcine) (Heparin -) 5,000 unit SQ BID [facility] Last Admin: 08/05/19 09:52 Dose: 5,000 unit Cefazolin Sodium 1 gm/ (Dextrose) 50 mls @ 100 mls/hr IVPB Q8H-IV [facility] Last Admin: 08/05/19 09:51 Dose: 100 mls/hr Insulin Aspart (Novolog Vial Sliding Scale -) 1 vial SQ [facility]; Protocol Last Admin: 08/05/19 12:14 Dose: Not Given Insulin Detemir (Levemir Vial) 8 units SQ [facility] Last Admin: 08/04/19 22:38 Dose: 8 units Lisinopril (Prinivil) 2.5 mg PO DAILY [facility] Last Admin: 08/05/19 09:51 Dose: 2.5 mg Non-Formulary Medication (Insulin Lispro [Humalog]) [address] [facility] Tacrolimus (Prograf) 1 mg PO BID [facility] Last Admin: 08/05/19 10:35 Dose: 1 mg Trazodone HCl (Desyrel -) 50 mg PO [facility] Last Admin: 08/04/19 22:09 Dose: 50 mg - Objective Vital Signs: Vital Signs Temperature 98.1 F 08/05/19 14:00 Pulse Rate 61 08/05/19 14:00 Respiratory Rate 20 08/05/19 14:00 Blood Pressure 97/65 08/05/19 14:00 O2 Sat by Pulse Oximetry (%) 94 L 08/05/19 10:00 Constitutional: Yes: No Distress, Calm Cardiovascular: Yes: S1, S2 Respiratory: Yes: Regular, CTA Bilaterally Gastrointestinal: Yes: Normal Bowel Sounds, Soft Musculoskeletal: Yes: WNL Extremities: Yes: Other Neurological: Yes: Alert, Oriented Psychiatric: Yes: Alert, Oriented Labs: CBC, BMP 08/03/19 06:35 08/04/19 06:15 Assessment/Plan Problem List - Problems (1) Acute on chronic diastolic CHF (congestive heart failure) Code(s): I50.33 - ACUTE ON CHRONIC DIASTOLIC (CONGESTIVE) HEART FAILURE (2) Azotemia Code(s): R79.89 - OTHER SPECIFIED ABNORMAL FINDINGS OF BLOOD CHEMISTRY (3) COPD (chronic obstructive pulmonary disease) Code(s): J44.9 - CHRONIC OBSTRUCTIVE PULMONARY DISEASE, UNSPECIFIED (4) Diabetes Code(s): E11.9 - TYPE 2 DIABETES MELLITUS WITHOUT COMPLICATIONS (5) Liver cirrhosis Code(s): K74.60 - UNSPECIFIED CIRRHOSIS OF LIVER (6) HTN (hypertension) Code(s): I10 - ESSENTIAL (PRIMARY) HYPERTENSION (7) HLD (hyperlipidemia) Code(s): E78.5 - HYPERLIPIDEMIA, UNSPECIFIED (8) S/P liver transplant Code(s): Z94.4 - LIVER TRANSPLANT STATUS (9) H/O heart artery stent Code(s): Z95.5 - PRESENCE OF CORONARY ANGIOPLASTY IMPLANT AND GRAFT cellulitis of the leg paln continue abx will deescalte tomorrow diuretics elevation of legs rest as per the team
[2019-08-05 16:09] LABS: ALBUMIN 3.7 g/dl (3.4-5.0); BILIRUBIN,TOTAL 0.8 mg/dL (0.2-1); BLOOD UREA NITROGEN 37.8 mg/dL (7-18); CALCIUM 9.3 mg/dL (8.5-10.1); CREATININE 1.3 mg/dL (0.55-1.3); POTASSIUM 5.2 mmol/L (3.5-5.1)
--- NOTE | 2019-08-05 16:39 | PN ---
Progress Note (short form) - Note Progress Note: RENAL Pt denies complaints his right leg which was swollen and red is better had a liver transplant 2 years ago. Says he had 2 tumors Last Vital Signs Temp Pulse Resp BP Pulse Ox 98.1 F 61 20 97/65 94 L 08/05/19 14:00 08/05/19 14:00 08/05/19 14:00 08/05/19 14:00 08/05/19 10:00 lungs clear cvs s1s2 rr +lalo abd soft ext trace edema on right, erythema neuro a+ox3 Current Medications Generic Name Dose Route Start Last Admin Trade Name Freq PRN Reason Stop Dose Admin Aspirin 81 mg 08/03/19 10:00 08/05/19 09:52 Asa - PO 81 mg DAILY [facility] Administration Atorvastatin Calcium 20 mg 08/03/19 22:00 08/04/19 22:08 Lipitor - PO 20 mg HS [facility] Administration Carvedilol 12.5 mg 08/03/19 10:00 08/05/19 09:52 Coreg - PO 12.5 mg BID [facility] Administration Furosemide 40 mg 08/06/19 10:00 Lasix - PO DAILY [facility] Heparin Sodium (Porcine) 5,000 unit 08/03/19 10:00 08/05/19 09:52 Heparin - SQ 5,000 unit BID [facility] Administration Cefazolin Sodium 1 gm/ 50 mls @ 100 mls/hr 08/03/19 02:00 08/05/19 09:51 Dextrose IVPB 100 mls/hr Q8H-IV [facility] Administration Insulin Aspart 1 vial 08/03/19 07:00 08/05/19 12:14 Novolog Vial Sliding Scale - SQ Not Given [facility] Protocol Insulin Detemir 8 units 08/03/19 22:00 08/04/19 22:38 Levemir Vial SQ 8 units HS [facility] Administration Lisinopril 2.5 mg 08/03/19 10:00 08/05/19 09:51 Prinivil PO 2.5 mg DAILY [facility] Administration Non-Formulary Medication 5 unit 08/03/19 00:15 Insulin Lispro [Humalog] SQ [facility] Tacrolimus 1 mg 08/03/19 10:00 08/05/19 10:35 Prograf PO 1 mg BID [facility] Administration Trazodone HCl 50 mg 08/03/19 04:45 08/04/19 22:09 Desyrel - PO 50 mg HS [facility] Administration WBC 5.6 K/mm3 (4.0-10.0) 08/03/19 06:35 RBC 4.74 M/mm3 (4.00-5.60) 08/03/19 06:35 Hgb 14.3 GM/dL (11.7-16.9) 08/03/19 06:35 Hct 44.1 % (35.4-49) 08/03/19 06:35 MCV 92.9 fl (80-96) 08/03/19 06:35 MCH 30.2 pg (25.7-33.7) 08/03/19 06:35 MCHC 32.5 g/dl (32.0-35.9) 08/03/19 06:35 RDW 17.0 % (11.9-15.9) H 08/03/19 06:35 Plt Count 129 K/MM3 (134-434) L D 08/03/19 06:35 MPV 8.1 fl (7.5-11.1) 08/03/19 06:35 Absolute Neuts (auto) 3.9 K/mm3 (1.5-8.0) 08/03/19 06:35 Neutrophils % 69.1 % (42.8-82.8) 08/03/19 06:35 Lymphocytes % 15.0 % (8-40) 08/03/19 06:35 Monocytes % 13.6 % (3.8-10.2) H 08/03/19 06:35 Eosinophils % 1.9 % (0-4.5) 08/03/19 06:35 Basophils % 0.4 % (0-2.0) 08/03/19 06:35 Nucleated RBC % 0 % (0-0) 08/03/19 06:35 Sodium 137 mmol/L (136-145) 08/05/19 15:33 Potassium 5.2 mmol/L (3.5-5.1) H 08/05/19 15:33 Chloride 100 mmol/L (98-107) 08/05/19 15:33 Carbon Dioxide 32 mmol/L (21-32) 08/05/19 15:33 Anion Gap 4 MMOL/L (8-16) L 08/05/19 15:33 BUN 37.8 mg/dL (7-18) H 08/05/19 15:33 Creatinine 1.3 mg/dL (0.55-1.3) 08/05/19 15:33 Est GFR (CKD-EPI)AfAm 65.44 08/05/19 15:33 Est GFR (CKD-EPI)NonAf 56.46 08/05/19 15:33 POC Glucometer 121 UNITS (80-120) 08/05/19 12:14 Random Glucose 128 mg/dL (74-106) H 08/05/19 15:33 Hemoglobin A1c % 5.2 % (4.2-6.3) 08/03/19 06:35 Calcium 9.3 mg/dL (8.5-10.1) 08/05/19 15:33 Total Bilirubin 0.8 mg/dL (0.2-1) 08/05/19 15:33 AST 22 U/L (15-37) 08/05/19 15:33 ALT 21 U/L (13-61) 08/05/19 15:33 Alkaline Phosphatase 111 U/L (45-117) 08/05/19 15:33 Creatine Kinase 45 U/L (26-308) 08/05/19 06:45 Troponin I < 0.02 ng/ml (0.00-0.05) 08/05/19 06:45 B-Natriuretic Peptide 886.8 pg/ml (5-125) H 08/02/19 15:30 Total Protein 7.0 g/dl (6.4-8.2) 08/05/19 15:33 Albumin 3.7 g/dl (3.4-5.0) 08/05/19 15:33 Triglycerides 115 mg/dL (0-150) 08/03/19 06:35 Cholesterol 106 mg/dL (50-200) 08/03/19 06:35 Total LDL Cholesterol 64 mg/dL (5-100) 08/03/19 06:35 HDL Cholesterol 28 mg/dL (40-60) L 08/03/19 06:35 TSH 2.45 uIU/ml (0.358-3.74) 08/03/19 06:35 Urine Color Yellow 08/04/19 13:00 Urine Appearance Clear 08/04/19 13:00 Urine pH 5.0 (5.0-8.0) 08/04/19 13:00 Ur Specific Pierce 1.008 (1.010-1.035) L 08/04/19 13:00 Urine Protein Negative (NEGATIVE) 08/04/19 13:00 Urine Glucose (UA) Negative (NEGATIVE) 08/04/19 13:00 Urine Ketones Negative (NEGATIVE) 08/04/19 13:00 Urine Blood Negative (NEGATIVE) 08/04/19 13:00 Urine Nitrite Negative (NEGATIVE) 08/04/19 13:00 Urine Bilirubin Negative (NEGATIVE) 08/04/19 13:00 Urine Urobilinogen 0.2 mg/dL (0.2-1.0) 08/04/19 13:00 Ur Leukocyte Esterase Negative (NEGATIVE) 08/04/19 13:00 Stool Occult Blood Negative (NEGATIVE) 08/02/19 20:20 Impression 1. fluid overload seems better 2. azotemia 3. liver transplant 4. chf 5. dm 6. htn 7 mild hyperkalemia and azotemia Plan - monitor renal function- may be worsening from lasix or contrast - volume status stable - GI eval for liver transplant - can cont alfredo for now. Hold if persitently hyperkalemic - 2 gram sodium diet - volume status improving MV
[2019-08-05] MEDS ORDERED: PT OWN MED DRAWER 7, Y5N ONE (21:11)
[2019-08-05] MEDS: traZODone HCL 50 MG TABLET (FP) PO SCH (21:14)
[2019-08-05] MEDS: ATORVASTATIN CA 20 MG TABLET (FP) PO SCH (21:14)
[2019-08-05] MEDS: INSULIN (LEVEMIR) 100 UNITS/ML UNITS SQ SCH (21:22)
--- NOTE | 2019-08-05 22:15 | PN ---
Progress Note, Physician History of Present Illness: No new complaints - Current Medication List Current Medications: Active Medications Aspirin (Asa -) 81 mg PO DAILY [facility] Last Admin: 08/05/19 09:52 Dose: 81 mg Atorvastatin Calcium (Lipitor -) 20 mg PO HS [facility] Last Admin: 08/05/19 21:14 Dose: 20 mg Carvedilol (Coreg -) 12.5 mg PO BID [facility] Last Admin: 08/05/19 21:14 Dose: 12.5 mg Furosemide (Lasix -) 40 mg PO DAILY [facility] Heparin Sodium (Porcine) (Heparin -) 5,000 unit SQ BID [facility] Last Admin: 08/05/19 21:14 Dose: 5,000 unit Cefazolin Sodium 1 gm/ (Dextrose) 50 mls @ 100 mls/hr IVPB Q8H-IV [facility] Last Admin: 08/05/19 17:12 Dose: 100 mls/hr Insulin Aspart (Novolog Vial Sliding Scale -) 1 vial SQ [facility]; Protocol Last Admin: 08/05/19 21:45 Dose: 2 units Insulin Detemir (Levemir Vial) 8 units SQ [facility] Last Admin: 08/05/19 21:22 Dose: 8 units Lisinopril (Prinivil) 2.5 mg PO DAILY [facility] Last Admin: 08/05/19 09:51 Dose: 2.5 mg Non-Formulary Medication (Insulin Lispro [Humalog]) 5 unit SQ [facility] Tacrolimus (Prograf) 1 mg PO BID [facility] Last Admin: 08/05/19 21:14 Dose: 1 mg Trazodone HCl (Desyrel -) 50 mg PO [facility] Last Admin: 08/05/19 21:14 Dose: 50 mg - Objective Vital Signs: Vital Signs Temperature 97.6 F 08/05/19 18:00 Pulse Rate 64 08/05/19 18:00 Respiratory Rate 20 08/05/19 18:00 Blood Pressure 91/53 L 08/05/19 18:00 O2 Sat by Pulse Oximetry (%) 94 L 08/05/19 10:00 Neck: Yes: WNL, Supple Cardiovascular: Yes: WNL, Regular Rate and Rhythm Respiratory: Yes: WNL, Regular, CTA Bilaterally Gastrointestinal: Yes: WNL, Normal Bowel Sounds, Soft Extremities: Yes: WNL Edema: No Labs: CBC, BMP 08/03/19 06:35 08/05/19 15:33 Problem List - Problems (1) Acute on chronic diastolic CHF (congestive heart failure) Assessment/Plan: Cont IV lasix Probably will change to PO in am Cont coreg Monitor electrolytes CTA chest showed pleural effusion Code(s): I50.33 - ACUTE ON CHRONIC DIASTOLIC (CONGESTIVE) HEART FAILURE (2) Cellulitis Assessment/Plan: Cont IV antibx Probably will change to PO in am Code(s): L03.90 - CELLULITIS, UNSPECIFIED (3) COPD (chronic obstructive pulmonary disease) Assessment/Plan: CTA chest showed pleural effusion Code(s): J44.9 - CHRONIC OBSTRUCTIVE PULMONARY DISEASE, UNSPECIFIED (4) Diabetes Assessment/Plan: Cont sliding scale w/ coverage Cont levemir/humalog Code(s): E11.9 - TYPE 2 DIABETES MELLITUS WITHOUT COMPLICATIONS (5) Liver cirrhosis Code(s): K74.60 - UNSPECIFIED CIRRHOSIS OF LIVER (6) HTN (hypertension) Assessment/Plan: BP stable Code(s): I10 - ESSENTIAL (PRIMARY) HYPERTENSION (7) HLD (hyperlipidemia) Assessment/Plan: Cont lipitor Code(s): E78.5 - HYPERLIPIDEMIA, UNSPECIFIED (8) S/P liver transplant Assessment/Plan: Cont prograf Code(s): Z94.4 - LIVER TRANSPLANT STATUS (9) H/O heart artery stent Code(s): Z95.5 - PRESENCE OF CORONARY ANGIOPLASTY IMPLANT AND GRAFT (10) Azotemia Assessment/Plan: Renal consult noted Code(s): R79.89 - OTHER SPECIFIED ABNORMAL FINDINGS OF BLOOD CHEMISTRY
[2019-08-06] MEDS: CEFAZOLIN 1 GM in DEXTROSE 5%-WATER - 50 ML IVPB SCH ×2 (01:10→10:40)
[2019-08-06] MEDS ORDERED: DEXTROSE 5%-WATER - 50 ML IVPB ONE ×2 (01:22→10:26)
[2019-08-06] MEDS ORDERED: ceFAZolin SODIUM 1 GM VIAL ONE ×2 (01:22→10:26)
[2019-08-06 05:49] VITALS: TEMP 98
[2019-08-06] MEDS: INSULIN SLIDING SCALE (NOVOLOG) 1 VIAL SQ SCH ×2 (06:12→10:55)
[2019-08-06] MEDS ORDERED: FUROSEMIDE 40 MG TABLET (FP) PO SCH (10:00)
[2019-08-06] MEDS ORDERED: PT OWN MED DRAWER 7, Y5N ONE (10:26)
[2019-08-06] MEDS: TACROLIMUS ANHYDROUS 1 MG CAPSULE PO SCH (10:41)
[2019-08-06] MEDS: HEPARIN NA (PORCINE) 5,000 UNITS/ML 1ML VIAL SQ SCH (10:41)
[2019-08-06] MEDS: ASPIRIN 81 MG CHEWABLE TABLETS PO SCH (10:41)
[2019-08-06] MEDS: LISINOPRIL 5 MG TABLET (FP) PO SCH (10:41)
[2019-08-06] MEDS: CARVEDILOL 12.5 MG TABLET (FP) PO SCH (10:41)
--- NOTE | 2019-08-06 12:20 | PN ---
Progress Note, Physician History of Present Illness: legs look better rt leg still a bit swollen and red - Current Medication List Current Medications: Active Medications Aspirin (Asa -) 81 mg PO DAILY [facility] Last Admin: 08/06/19 10:41 Dose: 81 mg Atorvastatin Calcium (Lipitor -) 20 mg PO [facility] Last Admin: 08/05/19 21:14 Dose: 20 mg Carvedilol (Coreg -) 12.5 mg PO BID [facility] Last Admin: 08/06/19 10:41 Dose: 12.5 mg Furosemide (Lasix -) 40 mg PO DAILY [facility] Last Admin: 08/06/19 10:41 Dose: 40 mg Heparin Sodium (Porcine) (Heparin -) 5,000 unit SQ BID [facility] Last Admin: 08/06/19 10:41 Dose: 5,000 unit Cefazolin Sodium 1 gm/ (Dextrose) 50 mls @ 100 mls/hr IVPB Q8H-IV [facility] Last Admin: 08/06/19 10:40 Dose: 100 mls/hr Insulin Aspart (Novolog Vial Sliding Scale -) 1 vial SQ [facility]; Protocol Last Admin: 08/06/19 10:55 Dose: Not Given Insulin Detemir (Levemir Vial) 8 units SQ [facility] Last Admin: 08/05/19 21:22 Dose: 8 units Lisinopril (Prinivil) 2.5 mg PO DAILY [facility] Last Admin: 08/06/19 10:41 Dose: 2.5 mg Non-Formulary Medication (Insulin Lispro [Humalog]) 5 unit SQ [facility] Tacrolimus (Prograf) 1 mg PO BID [facility] Last Admin: 08/06/19 10:41 Dose: 1 mg Trazodone HCl (Desyrel -) 50 mg PO [facility] Last Admin: 08/05/19 21:14 Dose: 50 mg - Objective Vital Signs: Vital Signs Temperature 98.0 F 08/06/19 05:48 Pulse Rate 60 08/06/19 05:48 Respiratory Rate 20 08/06/19 05:48 Blood Pressure 111/69 08/06/19 05:48 O2 Sat by Pulse Oximetry (%) 97 08/05/19 22:00 Constitutional: Yes: No Distress, Calm Cardiovascular: Yes: S1, S2 Respiratory: Yes: Regular, CTA Bilaterally, On Nasal O2 Gastrointestinal: Yes: Normal Bowel Sounds, Soft Musculoskeletal: Yes: Other Extremities: Yes: Erythema Edema: RLE: 1+ Integumentary: Yes: Erythema Neurological: Yes: Alert, Oriented Psychiatric: Yes: Alert, Oriented Labs: CBC, BMP 08/03/19 06:35 08/05/19 15:33 Assessment/Plan Problem List - Problems (1) Acute on chronic diastolic CHF (congestive heart failure) Code(s): I50.33 - ACUTE ON CHRONIC DIASTOLIC (CONGESTIVE) HEART FAILURE (2) Azotemia Code(s): R79.89 - OTHER SPECIFIED ABNORMAL FINDINGS OF BLOOD CHEMISTRY (3) COPD (chronic obstructive pulmonary disease) Code(s): J44.9 - CHRONIC OBSTRUCTIVE PULMONARY DISEASE, UNSPECIFIED (4) Diabetes Code(s): E11.9 - TYPE 2 DIABETES MELLITUS WITHOUT COMPLICATIONS (5) Liver cirrhosis Code(s): K74.60 - UNSPECIFIED CIRRHOSIS OF LIVER (6) HTN (hypertension) Code(s): I10 - ESSENTIAL (PRIMARY) HYPERTENSION (7) HLD (hyperlipidemia) Code(s): E78.5 - HYPERLIPIDEMIA, UNSPECIFIED (8) S/P liver transplant Code(s): Z94.4 - LIVER TRANSPLANT STATUS (9) H/O heart artery stent Code(s): Z95.5 - PRESENCE OF CORONARY ANGIOPLASTY IMPLANT AND GRAFT cellulitis of the leg plan changed to augmentin close watch elevation of leg rest as per the team
[2019-08-06 12:37] VITALS: BP 100/60; PULSE 62
--- NOTE | 2019-08-06 13:48 | PDOC ---
Documentation entered by Kumar Jung SCRIBE, acting as scribe for Bruno Kenny MD. Bruno Kenny MD: This documentation has been prepared by the Fabiana langford Nirvannie, SCRIBE, under my direction and personally reviewed by me in its entirety. I confirm that the documentation accurately reflects all work, treatment, procedures, and medical decision making performed by me. Attending Attestation - Resident Resident Name: Phu Waggoner - ED Attending Attestation I have performed the following: I have examined & evaluated the patient, The case was reviewed & discussed with the resident, I agree w/resident's findings & plan, Exceptions are as noted - HPI HPI: 08/02/19 15:42 CC: Lower extremity edema. HPI: The patient is a year old male, with a significant past medical history of anemia, HTN, HLD, cirrhosis, who presents to the emergency department with, worsening bilateral lower extremity edema, dyspnea, and orthopnea. As per patient, he ate canned soup just prior to the onset of his symptoms. He notes visiting his PCP, Dr. Garcia who gave him IV Lasix and advised him to report to the ED for further evaluation and admission. He denies any recent chest pain. He denies any recent fevers, chills, headache or dizziness. He denies any recent nausea, vomiting, diarrhea or constipation. He denies any recent dysuria, frequency, urgency or hematuria. Allergies: [facility] Primary Care Physician: Dr. Aliza Garcia - Physicial Exam PE: 08/02/19 15:43 Exam: Vitals: Triage Vital signs reviewed General Appearance: no acute distress, well nourished well developed, Head: Atraumatic, normocephalic Neck: Supple;No Nuchal rigidity Chest Wall: Nontender Cardiac: Regular rate and rhythm, no murmurs, no rubs, no gallops, Lungs: Diffuse crackles. Abdomen: Soft, nondistended, normal bowel sounds, nontender to palpation Rectal: Exam deferred Extremities: +2+ blt lower extremity edema R>L. Full range of motion to all extremities, no cyanosis, or clubbing. Skin: Warm and dry, no rashes or lesions, no petechiae Neuro: AOX3; Cranial Nerves 2-12 grossly intact, Strength intact to all extremities, Sensation intact to all extremities Psych: normal mood, normal affect - Medical Decision Making 08/06/19 15:15 Patient sent to the ED for CHF exacerbation given IV Lasix sent to be admitted We will admit to hospital for further management.
[2019-08-06] MEDS ORDERED: AMOX TR/POT CLAV 500MG/125MG TABLETS (FP) PO SCH (17:30)
== END 2019-08-06 14:21 | disposition home or self-care (01) | DRG 291 ==
LOC: JER 13:52 → JERBED 16:22 → J4W 08-03 00:48
PROVIDERS: ADMIT Internal Medicine; ATTEND Internal Medicine
DX: I13.0 Hypertensive heart and chronic kidney disease with heart failure and stage 1 through stage 4 chronic kidney disease, or unspecified chronic kidney disease (principal); I50.33 Acute on chronic diastolic (congestive) heart failure; Z94.4 Liver transplant status; L03.115 Cellulitis of right lower limb; L03.116 Cellulitis of left lower limb; N17.9 Acute kidney failure, unspecified; I25.119 Atherosclerotic heart disease of native coronary artery with unspecified angina pectoris; Z95.5 Presence of coronary angioplasty implant and graft; I35.0 Nonrheumatic aortic (valve) stenosis; I25.10 Atherosclerotic heart disease of native coronary artery without angina pectoris; E11.9 Type 2 diabetes mellitus without complications; E78.5 Hyperlipidemia, unspecified; E87.70 Fluid overload, unspecified; E87.5 Hyperkalemia; N18.9 Chronic kidney disease, unspecified; J44.9 Chronic obstructive pulmonary disease, unspecified
CPT/HCPCS: 36415; 71045-TC-FY; 71275-TC; 80053; 80061; 81003; 82272; 82550; 82962; 83036; 83721; 83880; 84443; 84484; 85025; 93005; 93010; 93306-TC; 93971-TC; 99283-25; J1644

== ENCOUNTER 2020-06-28 10:59 | Inpatient (IN) | payer OTHER ==
[2020-06-28 12:15] LABS: BASO % 0.3 % (0-2.0); EOS % 0.1 % (0-4.5); HEMATOCRIT 42.3 % (35.4-49); HEMOGLOBIN 13.9 GM/dL (11.7-16.9); LYMPH % 9.9 % (8-40); MCHC 32.9 g/dl (32.0-35.9); MEAN CELL VOLUME 91.1 fl (80-96); MONO % 10.4 % (3.8-10.2); NEUT % 79.3 % (42.8-82.8); PLATELET COUNT 93 K/MM3 (134-434); RBC 4.65 M/mm3 (4.00-5.60); RDW 14.8 % (11.9-15.9); WHITE BLOOD COUNT 3.4 K/mm3 (4.0-10.0)
[2020-06-28 12:20] LABS: INR 1.2 (0.83-1.09); PROTHROMBIN TIME (PATIENT) 14.7 SEC (9.7-13.0)
[2020-06-28 12:23] LABS: ACTIVATED PTT 30.8 SECONDS (25.2-36.5)
[2020-06-28 12:31] LABS: CHLORIDE 100 mmol/L (98-107); POTASSIUM 5.2 mmol/L (3.5-5.1); SODIUM 133 mmol/L (136-145)
[2020-06-28 12:33] LABS: CALCIUM 8.4 mg/dL (8.5-10.1)
[2020-06-28 12:34] LABS: ALBUMIN 3.8 g/dl (3.4-5.0); ANION GAP 5 MMOL/L (8-16); BLOOD UREA NITROGEN 30.3 mg/dL (7-18); CO2 28 mmol/L (21-32); GLUCOSE,RANDOM 220 mg/dL (74-106); LIPASE 137 U/L (73-393)
[2020-06-28 12:37] LABS: CREATININE 1.1 mg/dL (0.55-1.3); PHOSPHOROUS 2.9 mg/dL (2.5-4.9); SGOT/AST 61 U/L (15-37); SGPT/ALT 33 U/L (13-61)
[2020-06-28 12:38] LABS: BILIRUBIN,TOTAL 1.4 mg/dL (0.2-1); TOT PROT 6.9 g/dl (6.4-8.2)
[2020-06-28 12:40] LABS: ALK PHOS 95 U/L (45-117)
[2020-06-28] MEDS ORDERED: FUROSEMIDE 40 MG/4 ML INJECTABLE VIAL IVPUSH ONE (16:06)
[2020-06-28] MEDS ORDERED: FUROSEMIDE 40 MG/4 ML INJECTABLE VIAL ONE (16:10)
[2020-06-29] MEDS ORDERED: MAGNESIUM OXIDE 400 MG TABLET (FP) ONE (09:28)
[2020-06-29] MEDS ORDERED: CARVEDILOL 12.5 MG TABLET (FP) ONE (09:28)
[2020-06-29] MEDS ORDERED: ASPIRIN 81 MG CHEWABLE TABLETS ONE (09:28)
[2020-06-29] MEDS ORDERED: HEPARIN NA (PORCINE) 5,000 UNITS/ML 1ML VIAL ONE (09:28)
[2020-06-29] MEDS ORDERED: FUROSEMIDE 40 MG/4 ML INJECTABLE VIAL ONE (09:29)
[2020-06-29 09:33] LABS: BASO % 0.3 % (0-2.0); HEMATOCRIT 45.2 % (35.4-49); HEMOGLOBIN 14.9 GM/dL (11.7-16.9); LYMPH % 9.1 % (8-40); MCH 30.1 pg (25.7-33.7); MEAN CELL VOLUME 91.3 fl (80-96); MEAN PLT VOLUME 8.9 fl (7.5-11.1); MONO % 11.6 % (3.8-10.2); PLATELET COUNT 111 K/MM3 (134-434); RBC 4.95 M/mm3 (4.00-5.60); RDW 14.9 % (11.9-15.9); WHITE BLOOD COUNT 7.3 K/mm3 (4.0-10.0)
[2020-06-29] MEDS: CARVEDILOL 12.5 MG TABLET (FP) PO SCH ×2 (09:42→21:38)
[2020-06-29] MEDS: ASPIRIN 81 MG CHEWABLE TABLETS PO SCH (09:42)
[2020-06-29] MEDS: HEPARIN NA (PORCINE) 5,000 UNITS/ML 1ML VIAL SQ SCH ×2 (09:43→21:36)
[2020-06-29] MEDS: MAGNESIUM OXIDE 400 MG TABLET (FP) PO SCH ×2 (09:43→21:37)
[2020-06-29] MEDS: TACROLIMUS 0.5 MG CAPSULE PO SCH ×2 (09:43→21:57)
[2020-06-29] MEDS: FUROSEMIDE 40 MG/4 ML INJECTABLE VIAL IVPUSH SCH (09:43)
[2020-06-29] MEDS ORDERED: TACROLIMUS ANHYDROUS 1 MG CAPSULE PO SCH (10:00)
[2020-06-29 10:05] LABS: CHLORIDE 100 mmol/L (98-107); POTASSIUM 4.6 mmol/L (3.5-5.1); SODIUM 136 mmol/L (136-145)
[2020-06-29 10:08] LABS: ALBUMIN 3.6 g/dl (3.4-5.0); ANION GAP 7 MMOL/L (8-16); BLOOD UREA NITROGEN 26.3 mg/dL (7-18); CO2 28 mmol/L (21-32); GLUCOSE,RANDOM 135 mg/dL (74-106)
[2020-06-29 10:11] LABS: SGOT/AST 23 U/L (15-37); SGPT/ALT 27 U/L (13-61)
[2020-06-29 10:12] LABS: BILIRUBIN,TOTAL 1.5 mg/dL (0.2-1); TOT PROT 6.8 g/dl (6.4-8.2)
[2020-06-29 10:14] LABS: ALK PHOS 93 U/L (45-117)
[2020-06-29] MEDS: methylPREDNISolone NA SUCC 40 MG/1 ML VIAL IVPUSH SCH (17:25)
[2020-06-29] MEDS: traZODone HCL 50 MG TABLET (FP) PO SCH (21:37)
[2020-06-29] MEDS: ATORVASTATIN CA 20 MG TABLET (FP) PO SCH (21:38)
[2020-06-30] MEDS: methylPREDNISolone NA SUCC 40 MG/1 ML VIAL IVPUSH SCH ×2 (01:24→09:53)
[2020-06-30] MEDS: INSULIN SLIDING SCALE (NOVOLOG) 1 VIAL SQ SCH ×4 (06:26→21:31)
[2020-06-30 07:39] LABS: BASO % 0.1 % (0-2.0); HEMATOCRIT 41.2 % (35.4-49); HEMOGLOBIN 13.5 GM/dL (11.7-16.9); LYMPH % 8.1 % (8-40); MCH 29.5 pg (25.7-33.7); MCHC 32.7 g/dl (32.0-35.9); MEAN CELL VOLUME 90.2 fl (80-96); MEAN PLT VOLUME 8.8 fl (7.5-11.1); MONO % 4.2 % (3.8-10.2); NEUT % 87.6 % (42.8-82.8); PLATELET COUNT 108 K/MM3 (134-434); RBC 4.56 M/mm3 (4.00-5.60); RDW 14.8 % (11.9-15.9); WHITE BLOOD COUNT 3.8 K/mm3 (4.0-10.0)
[2020-06-30 07:56] LABS: POTASSIUM 4.7 mmol/L (3.5-5.1)
[2020-06-30 08:01] LABS: ALBUMIN 3.4 g/dl (3.4-5.0); BLOOD UREA NITROGEN 36.6 mg/dL (7-18)
[2020-06-30 08:05] LABS: BILIRUBIN,TOTAL 1.2 mg/dL (0.2-1); TOT PROT 6.7 g/dl (6.4-8.2)
[2020-06-30] MEDS: HEPARIN NA (PORCINE) 5,000 UNITS/ML 1ML VIAL SQ SCH ×2 (09:52→21:30)
[2020-06-30] MEDS: MAGNESIUM OXIDE 400 MG TABLET (FP) PO SCH ×2 (09:53→21:30)
[2020-06-30] MEDS: ASPIRIN 81 MG CHEWABLE TABLETS PO SCH (09:53)
[2020-06-30] MEDS: FUROSEMIDE 40 MG/4 ML INJECTABLE VIAL IVPUSH SCH (09:53)
[2020-06-30] MEDS ORDERED: PT OWN MED DRAWER 7, Y5N ONE ×2 (09:54→21:16)
[2020-06-30] MEDS: CARVEDILOL 12.5 MG TABLET (FP) PO SCH ×2 (09:54→21:29)
[2020-06-30] MEDS: TACROLIMUS 0.5 MG CAPSULE PO SCH ×2 (09:55→21:30)
[2020-06-30] MEDS ORDERED: INSULIN (NOVOLOG) ASPART 100 UNITS/ML 10ML VIAL ONE (11:17)
[2020-06-30] MEDS: DEXAMETHASONE SOD PHOSPHATE 4 MG/1 ML VIAL IVPUSH SCH (11:19)
[2020-06-30] MEDS: ATORVASTATIN CA 20 MG TABLET (FP) PO SCH (21:29)
[2020-06-30] MEDS: traZODone HCL 50 MG TABLET (FP) PO SCH (21:29)
[2020-07-01] MEDS: INSULIN SLIDING SCALE (NOVOLOG) 1 VIAL SQ SCH ×4 (06:10→21:39)
[2020-07-01 08:13] LABS: BASO % 0.1 % (0-2.0); HEMATOCRIT 40.9 % (35.4-49); HEMOGLOBIN 13.8 GM/dL (11.7-16.9); MCH 30.6 pg (25.7-33.7); MCHC 33.6 g/dl (32.0-35.9); MEAN PLT VOLUME 8.4 fl (7.5-11.1); MONO % 10.3 % (3.8-10.2); NEUT % 84.6 % (42.8-82.8); PLATELET COUNT 114 K/MM3 (134-434); RDW 14.6 % (11.9-15.9); WHITE BLOOD COUNT 6.7 K/mm3 (4.0-10.0)
[2020-07-01 08:27] LABS: POTASSIUM 4.9 mmol/L (3.5-5.1)
[2020-07-01 08:29] LABS: ALBUMIN 3.2 g/dl (3.4-5.0); CALCIUM 8.1 mg/dL (8.5-10.1)
[2020-07-01 08:34] LABS: BILIRUBIN,TOTAL 0.7 mg/dL (0.2-1); TOT PROT 6.5 g/dl (6.4-8.2)
[2020-07-01] MEDS: DEXAMETHASONE SOD PHOSPHATE 4 MG/1 ML VIAL IVPUSH SCH (09:52)
[2020-07-01] MEDS: FUROSEMIDE 40 MG/4 ML INJECTABLE VIAL IVPUSH SCH (09:52)
[2020-07-01] MEDS: ASPIRIN 81 MG CHEWABLE TABLETS PO SCH (09:52)
[2020-07-01] MEDS: CARVEDILOL 12.5 MG TABLET (FP) PO SCH ×2 (09:53→21:34)
[2020-07-01] MEDS: MAGNESIUM OXIDE 400 MG TABLET (FP) PO SCH ×2 (09:53→21:35)
[2020-07-01] MEDS: HEPARIN NA (PORCINE) 5,000 UNITS/ML 1ML VIAL SQ SCH ×2 (09:53→21:35)
[2020-07-01] MEDS ORDERED: PT OWN MED DRAWER 7, Y5N ONE ×2 (10:05→21:03)
[2020-07-01] MEDS ORDERED: INSULIN (NOVOLOG) ASPART 100 UNITS/ML 10ML VIAL ONE (10:06)
[2020-07-01] MEDS: TACROLIMUS 0.5 MG CAPSULE PO SCH ×2 (10:08→21:36)
[2020-07-01] MEDS ORDERED: REMDESIVIR 200 MG in SODIUM CHLORIDE 210 ML IVPB ONE (15:00)
[2020-07-01] MEDS: traZODone HCL 50 MG TABLET (FP) PO SCH (21:34)
[2020-07-01] MEDS: ATORVASTATIN CA 20 MG TABLET (FP) PO SCH (21:34)
[2020-07-02] MEDS: INSULIN SLIDING SCALE (NOVOLOG) 1 VIAL SQ SCH ×4 (06:11→21:49)
[2020-07-02] MEDS ORDERED: PT OWN MED DRAWER 7, Y5N ONE ×2 (09:38→21:13)
[2020-07-02] MEDS: HEPARIN NA (PORCINE) 5,000 UNITS/ML 1ML VIAL SQ SCH ×2 (09:43→21:42)
[2020-07-02] MEDS: DEXAMETHASONE SOD PHOSPHATE 4 MG/1 ML VIAL IVPUSH SCH (09:43)
[2020-07-02] MEDS: FUROSEMIDE 40 MG/4 ML INJECTABLE VIAL IVPUSH SCH (09:43)
[2020-07-02] MEDS: ASPIRIN 81 MG CHEWABLE TABLETS PO SCH (09:44)
[2020-07-02] MEDS: TACROLIMUS 0.5 MG CAPSULE PO SCH ×2 (09:44→21:42)
[2020-07-02] MEDS: MAGNESIUM OXIDE 400 MG TABLET (FP) PO SCH ×2 (09:44→21:42)
[2020-07-02] MEDS: CARVEDILOL 12.5 MG TABLET (FP) PO SCH ×2 (09:44→21:42)
[2020-07-02] MEDS: ALBUTEROL SO4 HFA INHALER IH PRN (10:16)
[2020-07-02] MEDS: REMDESIVIR 100 MG in SODIUM CHLORIDE 230 ML IVPB SCH (14:44)
[2020-07-02] MEDS: traZODone HCL 50 MG TABLET (FP) PO SCH (21:42)
[2020-07-02] MEDS: ATORVASTATIN CA 20 MG TABLET (FP) PO SCH (21:42)
[2020-07-03] MEDS: INSULIN SLIDING SCALE (NOVOLOG) 1 VIAL SQ SCH ×4 (06:27→21:48)
[2020-07-03] MEDS ORDERED: PT OWN MED DRAWER 7, Y5N ONE ×3 (08:50→21:11)
[2020-07-03] MEDS: HEPARIN NA (PORCINE) 5,000 UNITS/ML 1ML VIAL SQ SCH ×2 (09:03→21:44)
[2020-07-03] MEDS: ASPIRIN 81 MG CHEWABLE TABLETS PO SCH (09:04)
[2020-07-03] MEDS: DEXAMETHASONE SOD PHOSPHATE 4 MG/1 ML VIAL IVPUSH SCH (09:04)
[2020-07-03] MEDS: MAGNESIUM OXIDE 400 MG TABLET (FP) PO SCH ×2 (09:04→21:38)
[2020-07-03] MEDS: FUROSEMIDE 40 MG/4 ML INJECTABLE VIAL IVPUSH SCH (09:04)
[2020-07-03] MEDS: CARVEDILOL 12.5 MG TABLET (FP) PO SCH ×2 (09:04→21:38)
[2020-07-03] MEDS: TACROLIMUS 0.5 MG CAPSULE PO SCH ×2 (09:04→21:44)
[2020-07-03] MEDS: ALBUTEROL SO4 HFA INHALER IH PRN (09:05)
[2020-07-03 11:00] LABS: POTASSIUM 4.5 mmol/L (3.5-5.1)
[2020-07-03 11:02] LABS: CALCIUM 8.9 mg/dL (8.5-10.1)
[2020-07-03 11:03] LABS: ALBUMIN 3.5 g/dl (3.4-5.0); BLOOD UREA NITROGEN 34.7 mg/dL (7-18)
[2020-07-03 11:08] LABS: BILIRUBIN,TOTAL 0.9 mg/dL (0.2-1); TOT PROT 6.9 g/dl (6.4-8.2)
[2020-07-03] MEDS ORDERED: INSULIN (NOVOLOG) ASPART 100 UNITS/ML 10ML VIAL ONE (11:47)
[2020-07-03] MEDS: REMDESIVIR 100 MG in SODIUM CHLORIDE 230 ML IVPB SCH (15:35)
[2020-07-03] MEDS: traZODone HCL 50 MG TABLET (FP) PO SCH (21:38)
[2020-07-04] MEDS: INSULIN SLIDING SCALE (NOVOLOG) 1 VIAL SQ SCH ×4 (06:46→22:13)
[2020-07-04] MEDS ORDERED: PT OWN MED DRAWER 7, Y5N ONE ×2 (06:59→14:02)
[2020-07-04] MEDS: FUROSEMIDE 40 MG TABLET (FP) PO SCH (09:47)
[2020-07-04] MEDS: HEPARIN NA (PORCINE) 5,000 UNITS/ML 1ML VIAL SQ SCH ×2 (09:47→22:14)
[2020-07-04] MEDS: DEXAMETHASONE SOD PHOSPHATE 4 MG/1 ML VIAL IVPUSH SCH (09:47)
[2020-07-04] MEDS: TACROLIMUS 0.5 MG CAPSULE PO SCH ×2 (09:47→22:12)
[2020-07-04] MEDS: ASPIRIN 81 MG CHEWABLE TABLETS PO SCH (09:47)
[2020-07-04] MEDS: CARVEDILOL 12.5 MG TABLET (FP) PO SCH ×2 (09:48→22:11)
[2020-07-04] MEDS: MAGNESIUM OXIDE 400 MG TABLET (FP) PO SCH ×2 (09:48→22:12)
[2020-07-04] MEDS: REMDESIVIR 100 MG in SODIUM CHLORIDE 230 ML IVPB SCH (15:43)
[2020-07-04 18:09] LABS: POTASSIUM 4.8 mmol/L (3.5-5.1)
[2020-07-04 18:10] LABS: CALCIUM 9.4 mg/dL (8.5-10.1)
[2020-07-04 21:52] LABS: BASO % 0.1 % (0-2.0); HEMATOCRIT 42.6 % (35.4-49); HEMOGLOBIN 13.9 GM/dL (11.7-16.9); LYMPH % 4.7 % (8-40); MCH 29.7 pg (25.7-33.7); MCHC 32.7 g/dl (32.0-35.9); MEAN CELL VOLUME 90.8 fl (80-96); MEAN PLT VOLUME 9.2 fl (7.5-11.1); MONO % 9.5 % (3.8-10.2); NEUT % 85.7 % (42.8-82.8); PLATELET COUNT 162 K/MM3 (134-434); RBC 4.69 M/mm3 (4.00-5.60); RDW 14.5 % (11.9-15.9)
[2020-07-04] MEDS ORDERED: INSULIN (NOVOLOG) ASPART 100 UNITS/ML 10ML VIAL ONE (22:08)
[2020-07-04] MEDS: traZODone HCL 50 MG TABLET (FP) PO SCH (22:11)
[2020-07-05] MEDS: INSULIN SLIDING SCALE (NOVOLOG) 1 VIAL SQ SCH ×4 (06:23→22:21)
[2020-07-05 09:44] LABS: POTASSIUM 4.7 mmol/L (3.5-5.1)
[2020-07-05 09:56] LABS: ALBUMIN 3.2 g/dl (3.4-5.0); BLOOD UREA NITROGEN 32.4 mg/dL (7-18)
[2020-07-05 09:57] LABS: CALCIUM 8.6 mg/dL (8.5-10.1)
[2020-07-05 10:00] LABS: CREATININE 0.9 mg/dL (0.55-1.3)
[2020-07-05 10:02] LABS: BILIRUBIN,TOTAL 0.8 mg/dL (0.2-1); TOT PROT 6.4 g/dl (6.4-8.2)
[2020-07-05] MEDS: ASPIRIN 81 MG CHEWABLE TABLETS PO SCH (10:26)
[2020-07-05] MEDS: CARVEDILOL 12.5 MG TABLET (FP) PO SCH ×2 (10:26→21:45)
[2020-07-05] MEDS: DEXAMETHASONE SOD PHOSPHATE 4 MG/1 ML VIAL IVPUSH SCH (10:26)
[2020-07-05] MEDS: HEPARIN NA (PORCINE) 5,000 UNITS/ML 1ML VIAL SQ SCH (10:28)
[2020-07-05] MEDS: MAGNESIUM OXIDE 400 MG TABLET (FP) PO SCH ×2 (10:29→21:45)
[2020-07-05] MEDS: TACROLIMUS 0.5 MG CAPSULE PO SCH ×2 (10:29→22:22)
[2020-07-05] MEDS: FUROSEMIDE 40 MG TABLET (FP) PO SCH (10:29)
[2020-07-05] MEDS: REMDESIVIR 100 MG in SODIUM CHLORIDE 230 ML IVPB SCH (15:25)
[2020-07-05] MEDS ORDERED: PT OWN MED DRAWER 7, Y5N ONE ×2 (21:12→22:19)
[2020-07-05] MEDS: APIXABAN 5 MG TABLET PO SCH (21:45)
[2020-07-05] MEDS: traZODone HCL 50 MG TABLET (FP) PO SCH (21:45)
[2020-07-06] MEDS: INSULIN SLIDING SCALE (NOVOLOG) 1 VIAL SQ SCH ×4 (06:36→22:24)
[2020-07-06 10:25] LABS: BASO % 0.4 % (0-2.0); EOS % 0.1 % (0-4.5); HEMATOCRIT 44.7 % (35.4-49); HEMOGLOBIN 14.8 GM/dL (11.7-16.9); LYMPH % 9.8 % (8-40); MCH 29.9 pg (25.7-33.7); MEAN CELL VOLUME 90.7 fl (80-96); MONO % 13.3 % (3.8-10.2); NEUT % 76.4 % (42.8-82.8); PLATELET COUNT 190 K/MM3 (134-434); RBC 4.93 M/mm3 (4.00-5.60); RDW 14.2 % (11.9-15.9); WHITE BLOOD COUNT 6.2 K/mm3 (4.0-10.0)
[2020-07-06 10:48] LABS: POTASSIUM 4.7 mmol/L (3.5-5.1)
[2020-07-06 10:50] LABS: CALCIUM 8.8 mg/dL (8.5-10.1)
[2020-07-06 10:51] LABS: ALBUMIN 3.2 g/dl (3.4-5.0); BLOOD UREA NITROGEN 30.7 mg/dL (7-18)
[2020-07-06 10:56] LABS: BILIRUBIN,TOTAL 0.9 mg/dL (0.2-1); TOT PROT 6.5 g/dl (6.4-8.2)
[2020-07-06] MEDS: MAGNESIUM OXIDE 400 MG TABLET (FP) PO SCH ×2 (11:03→22:12)
[2020-07-06] MEDS: ASPIRIN 81 MG CHEWABLE TABLETS PO SCH (11:03)
[2020-07-06] MEDS: FUROSEMIDE 40 MG TABLET (FP) PO SCH (11:03)
[2020-07-06] MEDS: CARVEDILOL 12.5 MG TABLET (FP) PO SCH ×2 (11:03→22:12)
[2020-07-06] MEDS: APIXABAN 5 MG TABLET PO SCH ×2 (11:03→22:12)
[2020-07-06] MEDS ORDERED: PT OWN MED DRAWER 7, Y5N ONE ×2 (11:04→21:18)
[2020-07-06] MEDS: DEXAMETHASONE SOD PHOSPHATE 4 MG/1 ML VIAL IVPUSH SCH (11:04)
[2020-07-06] MEDS: TACROLIMUS 0.5 MG CAPSULE PO SCH ×2 (11:05→22:13)
[2020-07-06] MEDS: traZODone HCL 50 MG TABLET (FP) PO SCH (22:12)
[2020-07-07 08:34] LABS: BASO % 0.2 % (0-2.0); HEMATOCRIT 44.1 % (35.4-49); HEMOGLOBIN 14.6 GM/dL (11.7-16.9); LYMPH % 9.3 % (8-40); MCHC 33.1 g/dl (32.0-35.9); MEAN CELL VOLUME 90.5 fl (80-96); MEAN PLT VOLUME 8.5 fl (7.5-11.1); MONO % 12.5 % (3.8-10.2); PLATELET COUNT 190 K/MM3 (134-434); RBC 4.87 M/mm3 (4.00-5.60); RDW 14.4 % (11.9-15.9)
[2020-07-07 08:56] LABS: POTASSIUM 5.4 mmol/L (3.5-5.1)
[2020-07-07 09:09] LABS: CALCIUM 9.3 mg/dL (8.5-10.1)
[2020-07-07 09:10] LABS: ALBUMIN 3.4 g/dl (3.4-5.0); BLOOD UREA NITROGEN 32.2 mg/dL (7-18)
[2020-07-07 09:14] LABS: BILIRUBIN,TOTAL 1.3 mg/dL (0.2-1); TOT PROT 6.6 g/dl (6.4-8.2)
[2020-07-07] MEDS: APIXABAN 5 MG TABLET PO SCH ×2 (10:08→21:22)
[2020-07-07] MEDS: CARVEDILOL 12.5 MG TABLET (FP) PO SCH ×2 (10:08→21:22)
[2020-07-07] MEDS: MAGNESIUM OXIDE 400 MG TABLET (FP) PO SCH ×2 (10:08→21:22)
[2020-07-07] MEDS: ASPIRIN 81 MG CHEWABLE TABLETS PO SCH (10:08)
[2020-07-07] MEDS: FUROSEMIDE 40 MG TABLET (FP) PO SCH (10:08)
[2020-07-07] MEDS: DEXAMETHASONE SOD PHOSPHATE 4 MG/1 ML VIAL IVPUSH SCH (10:08)
[2020-07-07] MEDS: TACROLIMUS 0.5 MG CAPSULE PO SCH ×2 (10:09→21:23)
[2020-07-07] MEDS: INSULIN SLIDING SCALE (NOVOLOG) 1 VIAL SQ SCH ×4 (10:12→21:23)
[2020-07-07] MEDS ORDERED: INSULIN (NOVOLOG) ASPART 100 UNITS/ML 10ML VIAL ONE (21:08)
[2020-07-07] MEDS: traZODone HCL 50 MG TABLET (FP) PO SCH (21:22)
[2020-07-08] MEDS: INSULIN SLIDING SCALE (NOVOLOG) 1 VIAL SQ SCH ×4 (06:32→21:59)
[2020-07-08] MEDS ORDERED: INSULIN (NOVOLOG) ASPART 100 UNITS/ML 10ML VIAL ONE (06:58)
[2020-07-08 08:07] LABS: BASO % 0.2 % (0-2.0); EOS % 0.1 % (0-4.5); HEMATOCRIT 44.3 % (35.4-49); HEMOGLOBIN 14.4 GM/dL (11.7-16.9); LYMPH % 8.9 % (8-40); MCH 29.3 pg (25.7-33.7); MCHC 32.6 g/dl (32.0-35.9); MEAN PLT VOLUME 8.4 fl (7.5-11.1); MONO % 8.7 % (3.8-10.2); NEUT % 82.1 % (42.8-82.8); PLATELET COUNT 214 K/MM3 (134-434); RBC 4.92 M/mm3 (4.00-5.60); WHITE BLOOD COUNT 7.9 K/mm3 (4.0-10.0)
[2020-07-08 08:12] LABS: POTASSIUM 4.8 mmol/L (3.5-5.1)
[2020-07-08 08:15] LABS: CALCIUM 8.9 mg/dL (8.5-10.1)
[2020-07-08 08:16] LABS: ALBUMIN 3.3 g/dl (3.4-5.0); BLOOD UREA NITROGEN 33.5 mg/dL (7-18)
[2020-07-08 08:19] LABS: CREATININE 0.9 mg/dL (0.55-1.3)
[2020-07-08 08:20] LABS: BILIRUBIN,TOTAL 1.2 mg/dL (0.2-1)
[2020-07-08 08:21] LABS: TOT PROT 6.5 g/dl (6.4-8.2)
[2020-07-08] MEDS ORDERED: PT OWN MED DRAWER 7, Y5N ONE (10:08)
[2020-07-08] MEDS: CARVEDILOL 12.5 MG TABLET (FP) PO SCH ×2 (10:30→21:58)
[2020-07-08] MEDS: MAGNESIUM OXIDE 400 MG TABLET (FP) PO SCH ×2 (10:30→21:59)
[2020-07-08] MEDS: APIXABAN 5 MG TABLET PO SCH ×2 (10:30→21:59)
[2020-07-08] MEDS: FUROSEMIDE 40 MG TABLET (FP) PO SCH (10:30)
[2020-07-08] MEDS: ASPIRIN 81 MG CHEWABLE TABLETS PO SCH (10:30)
[2020-07-08] MEDS: DEXAMETHASONE SOD PHOSPHATE 4 MG/1 ML VIAL IVPUSH SCH (10:31)
[2020-07-08] MEDS: TACROLIMUS 0.5 MG CAPSULE PO SCH ×2 (10:31→22:02)
[2020-07-08 13:30] VITALS: BMI 24.3
[2020-07-08] MEDS: traZODone HCL 50 MG TABLET (FP) PO SCH (21:59)
[2020-07-09] MEDS: INSULIN SLIDING SCALE (NOVOLOG) 1 VIAL SQ SCH ×4 (06:43→21:18)
[2020-07-09] MEDS: MAGNESIUM OXIDE 400 MG TABLET (FP) PO SCH ×2 (10:02→21:17)
[2020-07-09] MEDS: ASPIRIN 81 MG CHEWABLE TABLETS PO SCH (10:03)
[2020-07-09] MEDS: APIXABAN 5 MG TABLET PO SCH ×2 (10:03→21:17)
[2020-07-09] MEDS: CARVEDILOL 12.5 MG TABLET (FP) PO SCH ×2 (10:03→21:16)
[2020-07-09] MEDS: FUROSEMIDE 40 MG TABLET (FP) PO SCH (10:03)
[2020-07-09] MEDS: TACROLIMUS 0.5 MG CAPSULE PO SCH ×2 (10:05→21:17)
[2020-07-09] MEDS: DEXAMETHASONE SOD PHOSPHATE 4 MG/1 ML VIAL IVPUSH SCH (10:06)
[2020-07-09] MEDS ORDERED: PT OWN MED DRAWER 7, Y5N ONE ×2 (10:17→20:49)
[2020-07-09 12:21] LABS: CHLORIDE 97 mmol/L (98-107); POTASSIUM 4.5 mmol/L (3.5-5.1); SODIUM 134 mmol/L (136-145)
[2020-07-09 12:26] LABS: ALBUMIN 3.2 g/dl (3.4-5.0); ANION GAP 5 MMOL/L (8-16); BLOOD UREA NITROGEN 32.2 mg/dL (7-18); CALCIUM 8.8 mg/dL (8.5-10.1); CO2 32 mmol/L (21-32); GLUCOSE,RANDOM 265 mg/dL (74-106)
[2020-07-09 12:29] LABS: SGOT/AST 35 U/L (15-37); SGPT/ALT 135 U/L (13-61)
[2020-07-09 12:31] LABS: BILIRUBIN,TOTAL 1.1 mg/dL (0.2-1); TOT PROT 6.4 g/dl (6.4-8.2)
[2020-07-09 12:32] LABS: ALK PHOS 89 U/L (45-117)
[2020-07-09] MEDS ORDERED: INSULIN (NOVOLOG) ASPART 100 UNITS/ML 10ML VIAL ONE (20:50)
[2020-07-09] MEDS: traZODone HCL 50 MG TABLET (FP) PO SCH (21:16)
[2020-07-10] MEDS: INSULIN SLIDING SCALE (NOVOLOG) 1 VIAL SQ SCH ×4 (06:31→21:34)
[2020-07-10] MEDS: MAGNESIUM OXIDE 400 MG TABLET (FP) PO SCH ×2 (09:06→21:37)
[2020-07-10] MEDS: ASPIRIN 81 MG CHEWABLE TABLETS PO SCH (09:06)
[2020-07-10] MEDS: FUROSEMIDE 40 MG TABLET (FP) PO SCH (09:06)
[2020-07-10] MEDS: CARVEDILOL 12.5 MG TABLET (FP) PO SCH ×2 (09:06→21:36)
[2020-07-10] MEDS: APIXABAN 5 MG TABLET PO SCH ×2 (09:06→21:37)
[2020-07-10] MEDS: DEXAMETHASONE SOD PHOSPHATE 4 MG/1 ML VIAL IVPUSH SCH (09:07)
[2020-07-10] MEDS: TACROLIMUS 0.5 MG CAPSULE PO SCH ×2 (09:13→21:40)
[2020-07-10] MEDS: traZODone HCL 50 MG TABLET (FP) PO SCH (21:37)
[2020-07-10] MEDS ORDERED: PT OWN MED DRAWER 7, Y5N ONE (21:39)
[2020-07-11] MEDS: INSULIN SLIDING SCALE (NOVOLOG) 1 VIAL SQ SCH ×4 (07:32→21:43)
[2020-07-11 08:53] LABS: POTASSIUM 4.7 mmol/L (3.5-5.1)
[2020-07-11 09:05] LABS: CALCIUM 8.8 mg/dL (8.5-10.1)
[2020-07-11 09:06] LABS: ALBUMIN 3.1 g/dl (3.4-5.0); BLOOD UREA NITROGEN 35.7 mg/dL (7-18)
[2020-07-11 09:09] LABS: CREATININE 0.8 mg/dL (0.55-1.3)
[2020-07-11 09:10] LABS: BILIRUBIN,TOTAL 1.3 mg/dL (0.2-1); TOT PROT 6.3 g/dl (6.4-8.2)
[2020-07-11] MEDS ORDERED: PT OWN MED DRAWER 7, Y5N ONE (11:05)
[2020-07-11] MEDS: APIXABAN 5 MG TABLET PO SCH ×2 (11:23→21:32)
[2020-07-11] MEDS: ASPIRIN 81 MG CHEWABLE TABLETS PO SCH (11:23)
[2020-07-11] MEDS: CARVEDILOL 12.5 MG TABLET (FP) PO SCH ×2 (11:23→21:32)
[2020-07-11] MEDS: FUROSEMIDE 40 MG TABLET (FP) PO SCH (11:23)
[2020-07-11] MEDS: TACROLIMUS 0.5 MG CAPSULE PO SCH ×2 (11:23→23:30)
[2020-07-11] MEDS: DEXAMETHASONE SOD PHOSPHATE 4 MG/1 ML VIAL IVPUSH SCH (11:24)
[2020-07-11] MEDS: MAGNESIUM OXIDE 400 MG TABLET (FP) PO SCH ×2 (11:24→21:32)
[2020-07-11] MEDS ORDERED: INSULIN (NOVOLOG) ASPART 100 UNITS/ML 10ML VIAL ONE (21:21)
[2020-07-11] MEDS: traZODone HCL 50 MG TABLET (FP) PO SCH (21:32)
[2020-07-11] MEDS ORDERED: INSULIN (LEVEMIR) 100 UNITS/ML UNITS SQ SCH (22:23)
[2020-07-12] MEDS: INSULIN SLIDING SCALE (NOVOLOG) 1 VIAL SQ SCH ×4 (06:22→21:19)
[2020-07-12] MEDS ORDERED: INSULIN (NOVOLOG) ASPART 100 UNITS/ML 10ML VIAL ONE ×2 (06:37→10:32)
[2020-07-12] MEDS: APIXABAN 5 MG TABLET PO SCH ×2 (09:24→21:07)
[2020-07-12] MEDS: ASPIRIN 81 MG CHEWABLE TABLETS PO SCH (09:24)
[2020-07-12] MEDS: DEXAMETHASONE SOD PHOSPHATE 4 MG/1 ML VIAL IVPUSH SCH (09:24)
[2020-07-12] MEDS: CARVEDILOL 12.5 MG TABLET (FP) PO SCH ×2 (09:24→21:07)
[2020-07-12] MEDS: TACROLIMUS 0.5 MG CAPSULE PO SCH ×2 (09:25→21:27)
[2020-07-12] MEDS: FUROSEMIDE 40 MG TABLET (FP) PO SCH (09:25)
[2020-07-12] MEDS: MAGNESIUM OXIDE 400 MG TABLET (FP) PO SCH ×2 (09:25→21:07)
[2020-07-12 21:03] VITALS: BP 145/87; PULSE 73; TEMP 98.3
[2020-07-12] MEDS: traZODone HCL 50 MG TABLET (FP) PO SCH (21:07)
[2020-07-12] MEDS ORDERED: INSULIN (LEVEMIR) 100 UNITS/ML UNITS SQ SCH (22:00)
== END 2020-07-12 21:55 | disposition home health service (06) | DRG 177 ==
LOC: JER 10:59 → JERBED 15:30 → J6S 06-29 16:43 → J5S 07-04 13:50
PROVIDERS: ADMIT Internal Medicine; ATTEND Internal Medicine
PROC: XW13325 Transfusion of Convalescent Plasma (Nonautologous) into Peripheral Vein, Percutaneous Approach, New Technology Group 5 (ICD-10-PCS; principal; 2020-06-30)
PROC: XW033E5 Introduction of Remdesivir Anti-infective into Peripheral Vein, Percutaneous Approach, New Technology Group 5 (ICD-10-PCS; 2020-07-02)
DX: U07.1 COVID-19 (principal); J12.89 Other viral pneumonia; I50.33 Acute on chronic diastolic (congestive) heart failure; J96.21 Acute and chronic respiratory failure with hypoxia; A08.39 Other viral enteritis; Z94.4 Liver transplant status; J44.9 Chronic obstructive pulmonary disease, unspecified; R10.9 Unspecified abdominal pain; I48.91 Unspecified atrial fibrillation; E78.5 Hyperlipidemia, unspecified; D64.9 Anemia, unspecified; E11.9 Type 2 diabetes mellitus without complications; I25.10 Atherosclerotic heart disease of native coronary artery without angina pectoris; K74.60 Unspecified cirrhosis of liver; I11.0 Hypertensive heart disease with heart failure; I35.0 Nonrheumatic aortic (valve) stenosis; Z95.0 Presence of cardiac pacemaker; Z99.81 Dependence on supplemental oxygen; Z95.5 Presence of coronary angioplasty implant and graft
CPT/HCPCS: 36415; 36430; 71045-TC-FY; 76705-TC; 80048; 80053; 82550; 82728; 82962; 83036; 83605; 83615; 83690; 83735; 83880; 84100; 84450; 84460; 84484; 85025; 85379; 85610; 85730; 86140; 86769; 86850; 86900; 86901; 87040; 87804; 93005; 93010; 94660; 94761; 99285-25; C9803; J1644; P9017; U0003

== ENCOUNTER 2020-10-26 13:33 | Inpatient (IN) | payer OTHER ==
[2020-10-26 15:19] LABS: VENOUS BASE EXCESS 2.7 mmol/L (-2-2); VENOUS O2 SATURATION 56.7 % (70-80); VENOUS PCO2 55.3 mmHg (38-52); VENOUS PH 7.351 (7.310-7.410)
[2020-10-26 15:21] LABS: BASO % 0.4 % (0-2.0); EOS % 1.5 % (0-4.5); HEMATOCRIT 34.4 % (35.4-49); HEMOGLOBIN 11.1 GM/dL (11.7-16.9); LYMPH % 18.7 % (8-40); MCH 29.8 pg (25.7-33.7); MCHC 32.4 g/dl (32.0-35.9); MEAN PLT VOLUME 8.8 fl (7.5-11.1); MONO % 10.3 % (3.8-10.2); NEUT % 69.1 % (42.8-82.8); PLATELET COUNT 132 K/MM3 (134-434); RBC 3.74 M/mm3 (4.00-5.60); RDW 16.6 % (11.9-15.9); WHITE BLOOD COUNT 5.2 K/mm3 (4.0-10.0)
[2020-10-26 15:28] LABS: INR 1.19 (0.83-1.09); PROTHROMBIN TIME (PATIENT) 14.6 SEC (9.7-13.0)
[2020-10-26 15:31] LABS: ACTIVATED PTT 30.4 SECONDS (25.2-36.5)
[2020-10-26 15:40] LABS: CALCIUM 9.4 mg/dL (8.5-10.1)
[2020-10-26 15:42] LABS: ALBUMIN 3.7 g/dl (3.4-5.0); BLOOD UREA NITROGEN 29.7 mg/dL (7-18); MAGNESIUM 2.3 mg/dL (1.8-2.4)
[2020-10-26 15:43] LABS: GLUCOSE,RANDOM 132 mg/dL (74-106)
[2020-10-26 15:45] LABS: CREATININE 1.4 mg/dL (0.55-1.3); PHOSPHOROUS 4.4 mg/dL (2.5-4.9); SGOT/AST 16 U/L (15-37); SGPT/ALT 23 U/L (13-61)
[2020-10-26 15:47] LABS: BILIRUBIN,TOTAL 1.4 mg/dL (0.2-1); TOT PROT 6.6 g/dl (6.4-8.2)
[2020-10-26 15:48] LABS: ALK PHOS 108 U/L (45-117)
[2020-10-26 15:51] LABS: N-TERMINAL BNP 2792.3 pg/ml (5-125)
[2020-10-26 16:00] LABS: ANION GAP 9 MMOL/L (8-16); CHLORIDE 103 mmol/L (98-107); CO2 30 mmol/L (21-32); POTASSIUM 4.8 mmol/L (3.5-5.1); SODIUM 142 mmol/L (136-145)
[2020-10-26] MEDS ORDERED: FUROSEMIDE 40 MG/4 ML INJECTABLE VIAL IVPUSH ONE (17:24)
[2020-10-26] MEDS ORDERED: FUROSEMIDE 40 MG/4 ML INJECTABLE VIAL ONE (17:40)
[2020-10-26 22:08] LABS: URINE APPEARANCE CLEAR; URINE BILIRUBIN NEGATIVE (NEGATIVE); URINE COLOR YELLOW; URINE GLUCOSE (UA) NEGATIVE (NEGATIVE); URINE KETONE NEGATIVE (NEGATIVE); URINE LEUK ESTERASE NEGATIVE (NEGATIVE); URINE NITRITE NEGATIVE (NEGATIVE); URINE PROTEIN NEGATIVE (NEGATIVE); URINE UROBILINOGEN 0.2 mg/dL (0.2-1.0)
[2020-10-27] MEDS: INSULIN (NOVOLOG) ASPART 100 UNITS/ML 10ML VIAL SQ SCH ×3 (07:39→17:05)
[2020-10-27] MEDS ORDERED: PT OWN MED DRAWER 7, Y5N ONE (09:40)
[2020-10-27] MEDS: ASPIRIN 81 MG CHEWABLE TABLETS PO SCH (09:43)
[2020-10-27] MEDS: TACROLIMUS 0.5 MG CAPSULE PO SCH ×2 (09:43→21:10)
[2020-10-27] MEDS ORDERED: DEXTROSE 5%-0.45% SALINE 1,000 ML IV SCH (09:45)
[2020-10-27] MEDS ORDERED: CARVEDILOL 12.5 MG TABLET (FP) PO SCH (10:00)
[2020-10-27] MEDS ORDERED: APIXABAN 5 MG TABLET PO SCH (10:00)
[2020-10-27] MEDS ORDERED: PATIENT'S OWN MEDICATION (NON-FORMULARY) (Magnesium Oxide [Magnesium] 500 MG Capsule) PO SCH (10:00)
[2020-10-27] MEDS ORDERED: FUROSEMIDE 40 MG/4 ML INJECTABLE VIAL IVPUSH ONE ×2 (14:00→22:26)
[2020-10-27] MEDS ORDERED: PNEUMOC 13-VAL CONJ-DIP CRM/PF 0.5 ML DISP.SYRIN IM ONE (15:00)
[2020-10-27] MEDS: ATORVASTATIN CA 20 MG TABLET (FP) PO SCH (21:10)
[2020-10-27] MEDS: ACETAMINOPHEN 325 MG TABLET (FP) PO PRN (23:53)
[2020-10-28] MEDS: FUROSEMIDE 40 MG/4 ML INJECTABLE VIAL IVPUSH SCH ×2 (06:26→14:44)
[2020-10-28 06:34] LABS: BASO % 0.4 % (0-2.0); EOS % 2.4 % (0-4.5); HEMATOCRIT 35.1 % (35.4-49); HEMOGLOBIN 11.4 GM/dL (11.7-16.9); LYMPH % 18.2 % (8-40); MCHC 32.5 g/dl (32.0-35.9); MEAN CELL VOLUME 92.3 fl (80-96); MEAN PLT VOLUME 8.6 fl (7.5-11.1); MONO % 12.9 % (3.8-10.2); NEUT % 66.1 % (42.8-82.8); PLATELET COUNT 133 K/MM3 (134-434); RBC 3.81 M/mm3 (4.00-5.60); RDW 16.2 % (11.9-15.9); WHITE BLOOD COUNT 6.2 K/mm3 (4.0-10.0)
[2020-10-28] MEDS: INSULIN (NOVOLOG) ASPART 100 UNITS/ML 10ML VIAL SQ SCH ×3 (06:45→16:52)
[2020-10-28] MEDS: INSULIN SLIDING SCALE (NOVOLOG) 1 VIAL SQ SCH ×4 (06:48→21:34)
[2020-10-28 07:25] LABS: ALBUMIN 3.6 g/dl (3.4-5.0); ALK PHOS 106 U/L (45-117); ANION GAP 5 MMOL/L (8-16); BLOOD UREA NITROGEN 24.4 mg/dL (7-18); CALCIUM 8.8 mg/dL (8.5-10.1); CHLORIDE 104 mmol/L (98-107); CO2 29 mmol/L (21-32); CREATININE 1.1 mg/dL (0.55-1.3); GLUCOSE,RANDOM 133 mg/dL (74-106); SGOT/AST 15 U/L (15-37); SGPT/ALT 19 U/L (13-61); SODIUM 137 mmol/L (136-145); TOT PROT 6.8 g/dl (6.4-8.2)
[2020-10-28] MEDS: CARVEDILOL 3.125 MG TABLET (FP) PO SCH ×3 (10:42→22:30)
[2020-10-28] MEDS: ASPIRIN 81 MG CHEWABLE TABLETS PO SCH (10:43)
[2020-10-28] MEDS: TACROLIMUS 0.5 MG CAPSULE PO SCH ×3 (10:43→22:30)
[2020-10-28] MEDS ORDERED: PT OWN MED DRAWER 7, Y5N ONE (21:32)
[2020-10-28] MEDS: ATORVASTATIN CA 20 MG TABLET (FP) PO SCH (21:33)
[2020-10-29] MEDS: traZODone HCL 50 MG TABLET (FP) PO SCH ×2 (00:54→21:50)
[2020-10-29] MEDS: ACETAMINOPHEN 325 MG TABLET (FP) PO PRN ×2 (03:49→14:22)
[2020-10-29] MEDS: FUROSEMIDE 40 MG/4 ML INJECTABLE VIAL IVPUSH SCH ×2 (05:17→14:24)
[2020-10-29] MEDS: INSULIN SLIDING SCALE (NOVOLOG) 1 VIAL SQ SCH ×4 (08:28→21:50)
[2020-10-29] MEDS: INSULIN (NOVOLOG) ASPART 100 UNITS/ML 10ML VIAL SQ SCH ×3 (08:33→16:44)
[2020-10-29] MEDS ORDERED: PT OWN MED DRAWER 7, Y5N ONE ×2 (09:32→21:30)
[2020-10-29] MEDS: CARVEDILOL 3.125 MG TABLET (FP) PO SCH ×2 (09:34→21:50)
[2020-10-29] MEDS: ASPIRIN 81 MG CHEWABLE TABLETS PO SCH (09:34)
[2020-10-29] MEDS: TACROLIMUS 0.5 MG CAPSULE PO SCH ×2 (09:35→21:49)
[2020-10-29] MEDS: ATORVASTATIN CA 20 MG TABLET (FP) PO SCH (21:49)
[2020-10-30 01:46] LABS: ARTERIAL BLD GAS O2 SATURATION 90.2 mmHg (95-98); ARTERIAL BLOOD GAS BASE EXCESS 0.5 mmol/L (-2-2); ARTERIAL BLOOD GAS PO2 57.1 mmHg (80-100); ARTERIAL BLOOD GAS pH 7.415 (7.350-7.450)
[2020-10-30 01:48] LABS: ALLENS TEST POSITIVE
[2020-10-30] MEDS: METOLAZONE 2.5 MG TABLET (FP) PO SCH (05:09)
[2020-10-30] MEDS: FUROSEMIDE 40 MG/4 ML INJECTABLE VIAL IVPUSH SCH ×2 (05:46→14:25)
[2020-10-30] MEDS: INSULIN SLIDING SCALE (NOVOLOG) 1 VIAL SQ SCH ×4 (06:19→21:26)
[2020-10-30] MEDS: INSULIN (NOVOLOG) ASPART 100 UNITS/ML 10ML VIAL SQ SCH ×3 (06:19→16:39)
[2020-10-30] MEDS ORDERED: PT OWN MED DRAWER 7, Y5N ONE ×2 (10:33→21:20)
[2020-10-30] MEDS: ASPIRIN 81 MG CHEWABLE TABLETS PO SCH (10:34)
[2020-10-30] MEDS: CARVEDILOL 3.125 MG TABLET (FP) PO SCH ×2 (10:34→21:25)
[2020-10-30] MEDS: TACROLIMUS 0.5 MG CAPSULE PO SCH ×2 (10:34→21:26)
[2020-10-30] MEDS: ACETAMINOPHEN 325 MG TABLET (FP) PO PRN (12:30)
[2020-10-30] MEDS ORDERED: FUROSEMIDE 40 MG/4 ML INJECTABLE VIAL IVPUSH ONE (17:00)
[2020-10-30] MEDS: ATORVASTATIN CA 20 MG TABLET (FP) PO SCH (21:25)
[2020-10-30] MEDS: traZODone HCL 50 MG TABLET (FP) PO SCH (23:09)
[2020-10-31] MEDS: ACETAMINOPHEN 325 MG TABLET (FP) PO PRN ×2 (03:30→21:27)
[2020-10-31] MEDS: METOLAZONE 2.5 MG TABLET (FP) PO SCH (05:30)
[2020-10-31] MEDS: FUROSEMIDE 40 MG/4 ML INJECTABLE VIAL IVPUSH SCH ×2 (06:10→14:47)
[2020-10-31] MEDS: INSULIN SLIDING SCALE (NOVOLOG) 1 VIAL SQ SCH ×4 (06:59→21:27)
[2020-10-31] MEDS: INSULIN (NOVOLOG) ASPART 100 UNITS/ML 10ML VIAL SQ SCH ×3 (06:59→17:11)
[2020-10-31] MEDS ORDERED: PT OWN MED DRAWER 7, Y5N ONE ×2 (09:49→20:52)
[2020-10-31] MEDS: LOSARTAN POTASSIUM 25 MG TABLET PO SCH (10:18)
[2020-10-31] MEDS: CARVEDILOL 3.125 MG TABLET (FP) PO SCH ×2 (10:18→21:27)
[2020-10-31] MEDS: ASPIRIN 81 MG CHEWABLE TABLETS PO SCH (10:18)
[2020-10-31] MEDS: TACROLIMUS 0.5 MG CAPSULE PO SCH ×2 (10:19→21:28)
[2020-10-31] MEDS: methylPREDNISolone NA SUCC 40 MG/1 ML VIAL IVPUSH SCH ×2 (14:52→17:12)
[2020-10-31] MEDS: ALBUTEROL SO4 HFA INHALER IH PRN (21:20)
[2020-10-31] MEDS: ATORVASTATIN CA 20 MG TABLET (FP) PO SCH (21:27)
[2020-10-31] MEDS: traZODone HCL 50 MG TABLET (FP) PO SCH (22:58)
[2020-11-01] MEDS: methylPREDNISolone NA SUCC 40 MG/1 ML VIAL IVPUSH SCH ×3 (02:09→17:36)
[2020-11-01] MEDS: INSULIN (NOVOLOG) ASPART 100 UNITS/ML 10ML VIAL SQ SCH ×3 (06:18→16:36)
[2020-11-01] MEDS: INSULIN SLIDING SCALE (NOVOLOG) 1 VIAL SQ SCH ×4 (06:18→21:12)
[2020-11-01 08:05] LABS: BASO % 0.2 % (0-2.0); HEMATOCRIT 31.9 % (35.4-49); HEMOGLOBIN 10.7 GM/dL (11.7-16.9); LYMPH % 9.3 % (8-40); MCH 29.9 pg (25.7-33.7); MCHC 33.5 g/dl (32.0-35.9); MEAN CELL VOLUME 89.1 fl (80-96); MEAN PLT VOLUME 9.3 fl (7.5-11.1); MONO % 4.4 % (3.8-10.2); NEUT % 86.1 % (42.8-82.8); PLATELET COUNT 128 K/MM3 (134-434); RBC 3.57 M/mm3 (4.00-5.60); RDW 15.5 % (11.9-15.9); WHITE BLOOD COUNT 3.7 K/mm3 (4.0-10.0)
[2020-11-01 08:33] LABS: POTASSIUM 4.1 mmol/L (3.5-5.1)
[2020-11-01 08:49] LABS: TOT PROT 6.6 g/dl (6.4-8.2)
[2020-11-01 08:50] LABS: ALBUMIN 3.3 g/dl (3.4-5.0)
[2020-11-01 08:52] LABS: CALCIUM 9.5 mg/dL (8.5-10.1)
[2020-11-01 08:53] LABS: CREATININE 1.5 mg/dL (0.55-1.3)
[2020-11-01 08:56] LABS: BLOOD UREA NITROGEN 66.5 mg/dL (7-18)
[2020-11-01] MEDS ORDERED: PT OWN MED DRAWER 7, Y5N ONE ×4 (09:35→21:02)
[2020-11-01] MEDS: ASPIRIN 81 MG CHEWABLE TABLETS PO SCH (09:41)
[2020-11-01] MEDS: FUROSEMIDE 40 MG/4 ML INJECTABLE VIAL IVPUSH SCH (09:42)
[2020-11-01] MEDS: TACROLIMUS 0.5 MG CAPSULE PO SCH ×2 (09:44→21:07)
[2020-11-01] MEDS: CARVEDILOL 3.125 MG TABLET (FP) PO SCH ×2 (11:40→21:06)
[2020-11-01] MEDS: LOSARTAN POTASSIUM 25 MG TABLET PO SCH (11:40)
[2020-11-01] MEDS: DOCUSATE SODIUM 100 MG CAPSULE (FP) PO SCH (21:06)
[2020-11-01] MEDS: ATORVASTATIN CA 20 MG TABLET (FP) PO SCH (21:06)
[2020-11-01] MEDS: traZODone HCL 50 MG TABLET (FP) PO SCH (23:30)
[2020-11-02] MEDS: methylPREDNISolone NA SUCC 40 MG/1 ML VIAL IVPUSH SCH ×3 (02:04→18:00)
[2020-11-02] MEDS: INSULIN (NOVOLOG) ASPART 100 UNITS/ML 10ML VIAL SQ SCH ×3 (06:49→16:47)
[2020-11-02] MEDS: DOCUSATE SODIUM 100 MG CAPSULE (FP) PO SCH ×3 (06:50→21:17)
[2020-11-02] MEDS: INSULIN SLIDING SCALE (NOVOLOG) 1 VIAL SQ SCH ×4 (06:50→21:17)
[2020-11-02] MEDS ORDERED: PT OWN MED DRAWER 7, Y5N ONE ×2 (10:11→21:08)
[2020-11-02] MEDS: ASPIRIN 81 MG CHEWABLE TABLETS PO SCH (10:12)
[2020-11-02] MEDS: TACROLIMUS 0.5 MG CAPSULE PO SCH ×2 (10:13→21:17)
[2020-11-02] MEDS: CARVEDILOL 3.125 MG TABLET (FP) PO SCH ×2 (10:13→21:17)
[2020-11-02] MEDS: LOSARTAN POTASSIUM 25 MG TABLET PO SCH (10:13)
[2020-11-02] MEDS: FUROSEMIDE 40 MG/4 ML INJECTABLE VIAL IVPUSH SCH ×2 (10:13→15:26)
[2020-11-02] MEDS: ATORVASTATIN CA 20 MG TABLET (FP) PO SCH (21:17)
[2020-11-03] MEDS: methylPREDNISolone NA SUCC 40 MG/1 ML VIAL IVPUSH SCH ×4 (01:25→23:17)
[2020-11-03] MEDS: traZODone HCL 50 MG TABLET (FP) PO SCH ×2 (01:35→23:17)
[2020-11-03] MEDS: INSULIN (LEVEMIR) 100 UNITS/ML UNITS SQ SCH (06:17)
[2020-11-03] MEDS: INSULIN (NOVOLOG) ASPART 100 UNITS/ML 10ML VIAL SQ SCH ×3 (06:17→17:00)
[2020-11-03] MEDS: INSULIN SLIDING SCALE (NOVOLOG) 1 VIAL SQ SCH ×4 (06:17→21:12)
[2020-11-03] MEDS: FUROSEMIDE 40 MG/4 ML INJECTABLE VIAL IVPUSH SCH ×2 (06:17→14:12)
[2020-11-03] MEDS: DOCUSATE SODIUM 100 MG CAPSULE (FP) PO SCH ×3 (06:18→21:12)
[2020-11-03 08:04] LABS: POTASSIUM 4.3 mmol/L (3.5-5.1)
[2020-11-03 08:08] LABS: CALCIUM 10.1 mg/dL (8.5-10.1)
[2020-11-03 08:10] LABS: ALBUMIN 3.7 g/dl (3.4-5.0); BLOOD UREA NITROGEN 71.2 mg/dL (7-18)
[2020-11-03 08:12] LABS: BASO % 0.1 % (0-2.0); HEMOGLOBIN 12.5 GM/dL (11.7-16.9); MCH 30.4 pg (25.7-33.7); MCHC 33.8 g/dl (32.0-35.9); MEAN CELL VOLUME 89.8 fl (80-96); MEAN PLT VOLUME 9.2 fl (7.5-11.1); MONO % 4.4 % (3.8-10.2); NEUT % 90.5 % (42.8-82.8); PLATELET COUNT 183 K/MM3 (134-434); RBC 4.13 M/mm3 (4.00-5.60); RDW 15.8 % (11.9-15.9); WHITE BLOOD COUNT 9.7 K/mm3 (4.0-10.0)
[2020-11-03 08:13] LABS: CREATININE 1.5 mg/dL (0.55-1.3)
[2020-11-03 08:14] LABS: BILIRUBIN,TOTAL 1.1 mg/dL (0.2-1); TOT PROT 7.3 g/dl (6.4-8.2)
[2020-11-03] MEDS: CARVEDILOL 3.125 MG TABLET (FP) PO SCH ×2 (09:49→21:08)
[2020-11-03] MEDS: LOSARTAN POTASSIUM 25 MG TABLET PO SCH (09:49)
[2020-11-03] MEDS: TACROLIMUS 0.5 MG CAPSULE PO SCH ×2 (09:49→21:13)
[2020-11-03] MEDS: ASPIRIN 81 MG CHEWABLE TABLETS PO SCH (09:49)
[2020-11-03] MEDS ORDERED: PT OWN MED DRAWER 7, Y5N ONE (20:59)
[2020-11-03] MEDS: ATORVASTATIN CA 20 MG TABLET (FP) PO SCH (21:08)
[2020-11-03] MEDS: ALBUTEROL SO4 HFA INHALER IH PRN (21:13)
[2020-11-03] MEDS: ACETAMINOPHEN 325 MG TABLET (FP) PO PRN (21:13)
[2020-11-03] MEDS ORDERED: INSULIN (LEVEMIR) 100 UNITS/ML UNITS SQ SCH (22:00)
[2020-11-04] MEDS: ALBUTEROL SO4 HFA INHALER IH PRN (00:50)
[2020-11-04] MEDS: FUROSEMIDE 40 MG/4 ML INJECTABLE VIAL IVPUSH SCH ×2 (06:56→13:14)
[2020-11-04] MEDS: INSULIN (NOVOLOG) ASPART 100 UNITS/ML 10ML VIAL SQ SCH ×3 (06:56→16:13)
[2020-11-04] MEDS: DOCUSATE SODIUM 100 MG CAPSULE (FP) PO SCH ×2 (06:56→13:21)
[2020-11-04] MEDS: INSULIN SLIDING SCALE (NOVOLOG) 1 VIAL SQ SCH ×3 (06:56→16:13)
[2020-11-04] MEDS: INSULIN (LEVEMIR) 100 UNITS/ML UNITS SQ SCH (06:56)
[2020-11-04 07:04] LABS: ARTERIAL BLD GAS O2 SATURATION 97.5 mmHg (95-98); ARTERIAL BLOOD GAS BASE EXCESS 3.8 mmol/L (-2-2); ARTERIAL BLOOD GAS PO2 99.5 mmHg (80-100)
[2020-11-04 07:06] LABS: ALLENS TEST POSITIVE
[2020-11-04 07:07] LABS: VENT MODE S/T; VENT RATE 14
[2020-11-04] MEDS ORDERED: PT OWN MED DRAWER 7, Y5N ONE (09:31)
[2020-11-04] MEDS: LOSARTAN POTASSIUM 25 MG TABLET PO SCH (09:36)
[2020-11-04] MEDS: TACROLIMUS 0.5 MG CAPSULE PO SCH (09:36)
[2020-11-04] MEDS: ASPIRIN 81 MG CHEWABLE TABLETS PO SCH (09:36)
[2020-11-04] MEDS: CARVEDILOL 3.125 MG TABLET (FP) PO SCH (09:39)
[2020-11-04] MEDS: ACETAMINOPHEN 325 MG TABLET (FP) PO PRN (09:40)
[2020-11-04] MEDS: methylPREDNISolone NA SUCC 40 MG/1 ML VIAL IVPUSH SCH (13:21)
[2020-11-04 13:56] VITALS: BP 99/44; PULSE 77; TEMP 97.4
[2020-11-04] MEDS ORDERED: LIDOCAINE 5% TOPICAL PATCH TP SCH (14:45)
[2020-11-04] MEDS ORDERED: ALPRAZolam 0.25 MG TABLET PO ONE (16:00)
[2020-11-04 16:46] VITALS: BMI 23.7
[2020-11-04] MEDS ORDERED: LIDOCAINE PATCH REMOVAL MC SCH (22:00)
[2020-11-04] MEDS ORDERED: GABAPENTIN 300 MG CAPSULE PO SCH (22:00)
[2020-11-05] MEDS ORDERED: MULTIVITAMINS (DAILY MVI) TABLET (FP) PO SCH (10:00)
== END 2020-11-04 18:00 | disposition expired | DRG 208 ==
LOC: SUPCPDRO 13:33 → JER 13:33 → JERBED 14:18 → J4S 23:30
PROVIDERS: ADMIT Internal Medicine; ATTEND Internal Medicine
PROC: 5A1935Z Respiratory Ventilation, Less than 24 Consecutive Hours (ICD-10-PCS; principal; 2020-11-04)
PROC: 0BH17EZ Insertion of Endotracheal Airway into Trachea, Via Natural or Artificial Opening (ICD-10-PCS; 2020-11-04)
PROC: 5A12012 Performance of Cardiac Output, Single, Manual (ICD-10-PCS; 2020-11-04)
DX: J96.21 Acute and chronic respiratory failure with hypoxia (principal); I50.33 Acute on chronic diastolic (congestive) heart failure; Z94.4 Liver transplant status; N17.9 Acute kidney failure, unspecified; I13.0 Hypertensive heart and chronic kidney disease with heart failure and stage 1 through stage 4 chronic kidney disease, or unspecified chronic kidney disease; J44.9 Chronic obstructive pulmonary disease, unspecified; D64.9 Anemia, unspecified; E78.5 Hyperlipidemia, unspecified; Z99.81 Dependence on supplemental oxygen; I48.0 Paroxysmal atrial fibrillation; I49.5 Sick sinus syndrome; Z95.0 Presence of cardiac pacemaker; Z79.4 Long term (current) use of insulin; Z86.16 Personal history of COVID-19; I25.10 Atherosclerotic heart disease of native coronary artery without angina pectoris; I35.0 Nonrheumatic aortic (valve) stenosis; E11.22 Type 2 diabetes mellitus with diabetic chronic kidney disease; N18.9 Chronic kidney disease, unspecified
CPT/HCPCS: 36415; 36600; 70450-TC; 71045-TC-FY; 71275-TC; 80048; 80053; 80197; 81003; 82272; 82550; 82803; 82962; 83036; 83735; 83880; 84100; 84484; 85025; 85610; 85730; 86850; 86900; 86901; 87804; 93005; 93010; 93306-TC; 93880-TC; 94660; 99285-25; C9803; U0003